=== PATIENT | male | born 1975 | race Hispanic/Latino ===

== ENCOUNTER 2017-04-13 11:44 | Emergency (ER) | payer BC, OTHER ==
[~2017-04-13] VITALS: Ht 165.1 cm; Wt 78.9 kg
[~2017-04-13 11:44] MED LIST: HYDRALAZINE HCL25 MG PO; LOPRESSOR25 MG PO; NEORAL100 MG PO; PREDNISONE10 MG PO; RENVELA0.8 GM PO; Z.0.PREDNISONE20 MG
[2017-04-13] MEDS ORDERED: ACETAMINOPHEN/CODEINE ELIX 120-12 MG/5 ML UDC PO ONE (12:00)
[2017-04-13] MEDS ORDERED: DEXAMETHASONE SOD PHOS 10 MG/1 ML VIAL INJ ONE (12:00)
[2017-04-13] MEDS ORDERED: IBUPROFEN 600 MG TAB PO STA (12:11)
[2017-04-13 12:34] LABS: BASOPHILS % 0.5 % (0.0-1.0); EOSINOPHILS # (AUTO) 0.2 (0.0-0.4); EOSINOPHILS % 4.1 % (0.0-6.0); HEMATOCRIT 38.3 % (38.2-49.6); HEMOGLOBIN 12.9 g/dL (14.0-18.0); LYMPHOCYTES # (AUTO) 0.7 (1.0-3.2); LYMPHOCYTES % 16.7 % (18.0-39.1); MEAN CORPUSCULAR HEMOGLOBIN 31.5 pg (28-32); MEAN CORPUSCULAR HGB CONC 33.7 g/dL (31-35); MEAN CORPUSCULAR VOLUME 93.4 fL (81-99); MONOCYTES # (AUTO) 0.6 (0.2-0.8); MONOCYTES % 15.4 % (4.4-11.3); NEUTROPHILS # (AUTO) 2.5 (2.1-6.9); PLATELET COUNT 108 x10e3/uL (140-360); RED CELL DISTRIBUTION WIDTH 14.8 % (11.7-14.4)
[2017-04-13 12:50] LABS: STREPTOCOCCUS GRP A ANTIGEN NEGATIVE (NEGATIVE)
[2017-04-13 12:53] LABS: ALBUMIN 3.7 g/dL (3.5-5.0); ALBUMIN/GLOBULIN RATIO 0.9 (0.8-2.0); ANION GAP 13.4 mmol/L (8-16); CALCIUM 8.7 mg/dL (8.4-10.2); CREATININE, SERUM 5.87 mg/dL (0.72-1.25); INFLUENZAE A&B ANTIGEN (RAPID) POSITIVE FLU A (NEGATIVE); POTASSIUM 3.4 mmol/L (3.5-5.1)
--- NOTE | 2017-04-13 13:22 | Diagnostic Imaging Report ---
EXAMINATION: Chest, CHEST 2 VIEWS INDICATION: Cough. COMPARISON: Chest 2 views 02/11/2017 FINDINGS: LINES: None. Heart: Normal cardiac silhouette. Vascular: The pulmonary vasculature is within normal limits. Mediastinum: No mediastinal, hilar, or axillary mass or lymphadenopathy. Lungs: No parenchymal mass. No focal consolidation. Pleura: No pleural effusion. No pneumothorax. Bones: No acute osseous abnormality. Soft tissues: Normal. Impression: No acute radiographic abnormality. Signed by: Dr. Perfecto Bocanegra M.D. on 04/13/2017 1:18 PM
[2017-04-13] MEDS ORDERED: PROAIR HFA INH8.5 GM INH (13:33)
[2017-04-13] MEDS ORDERED: TAMIFLU75 MG PO (13:33)
[2017-04-13] MEDS ORDERED: AZITHROMYCIN250 MG PO (13:33)
[2017-04-13 13:49] VITALS: BP 136/96
== END 2017-04-13 14:11 | disposition home or self-care (01) ==
LOC: ER 11:44
DX: R50.9 Fever, unspecified (principal); R05 Cough; J11.1 Influenza due to unidentified influenza virus with other respiratory manifestations
CPT/HCPCS: 36415; 71020; 80053; 83518; 85025; 87070; 87400; 99284; J1100; 71046

== ENCOUNTER 2017-06-03 03:19 | Inpatient (IN) | payer BC, OTHER ==
[~2017-06-03] VITALS: Ht 170.2 cm; Wt 90.0 kg
[~2017-06-03 03:19] MED LIST changes: +AZITHROMYCIN250 MG PO; +PROAIR HFA INH8.5 GM INH; +TAMIFLU75 MG PO
--- OUTSIDE RECORDS SUMMARY | 2017-06-03 03:21 | XMS REPORT ---
Author Author [facility] Address Unknown Phone Unavailable Care Team Providers Care Hedge Fund Principal Name Role Phone LUIS CARLOS GENAO Unavailable Unavailable YANY DE LA VEGA Unavailable Unavailable CAITLYN MCCALLUM Unavailable Unavailable KEKE GREEN Unavailable Unavailable Problems This patient has no known problems. Allergies, Adverse Reactions, Alerts This patient has no known allergies or adverse reactions. Medications This patient has no known medications. Results Test Description Test Time Test Comments Text Results Atomic Results Result Comments FLOW PRA CLASS I AND II 2016-12-31 12:08:00 DATE OF SERUM (BEAKER) (test dxti=4952) 113768 SERUM # (BEAKER) (test pjzx=7478) 890507 FLOW PRA CLASS I AND II (test ykhl=9725) See Scanned Report FLOW PRA CLASS I AND [id number] 13:10:00* Test Item Value Reference Range Comments DATE OF SERUM (BEAKER) (test pdog=1507) 668347 SERUM # (BEAKER) (test hqpb=4075) 318743 FLOW PRA CLASS I AND II (test pluv=0029) See Scanned Report HEPATITIS B SURFACE [id number] 14:12:00* Test Item Value Reference Range Comments HEPATITIS B SURFACE ANTIBODY (BEAKER) (test rbil=018) 139.4 mIU/mL <8.0 FLOW PRA CLASS I AND [id number] 06:49:00* Test Item Value Reference Range Comments DATE OF SERUM (BEAKER) (test gzlj=6131) 018587 SERUM # (BEAKER) (test uaro=3128) 915514 FLOW PRA CLASS I AND II (test xdxj=3857) See Scanned Report CHEST [address] [address] Patient Name: JANINE WILLINGHAM MR #: [id number] : 1975 Age/Sex: 41/M Req #: [id number] Adm Physician: Ordered by: MICHI BOONE PULP DRIER FIRER Report #: [id number] Location: ER Room/Bed: Procedure: [id number] DX/CHEST 2 VIEWS Exam Date: 04/13/17 Exam Time: 1235 REPORT STATUS: Signed EXAMINATION: Chest, CHEST 2 VIEWS INDICATION: Cough. COMPARISON: Chest 2 views 02/11/2017 FINDINGS : LINES: None. Heart: Normal cardiac silhouette. Vascular: The pulmonary vasculature is within normal limits. Mediastinum: No mediastinal, hilar, or axillary mass or lymphadenopathy. Lungs: No parenchymal mass. No focal consolidation. Pleura: No pleural effusion. No pneumothorax. Bones: No acute osseous abnormality. Soft tissues: Normal. Impression: No acute radiographic abnormality. Signed by : Dr. Carly Nice M.D. on 04/13/2017 1:18 PM Dictated By: CARLY NICE MD 17 Transcribed By: JERSON on 04/13/171317 COPY TO: MICHI BOONE PULP DRIER FIRER CHEST 2 VIEWS [place] [address] Patient Name: JANINE WILLINGHAM MR #: [id number] : 1975 Age/Sex: 41/M Req #: [id number] Adm Physician: Ordered by: YANY DE LA VEGA MD Report #: [id number] Location: RAD Room/Bed: Procedure: [id number] DX/CHEST 2 VIEWS Exam Date: 02/11/17 Exam Time: 1045 REPORT STATUS: Signed PROCEDURE: CHEST 2 VIEWS TECHNIQUE: PA lateral chest INDICATION: Followup pneumonia COMPARISON: None. FINDINGS: Near- complete resolution of right upper lobe airspace opacity relative to December 2016. No cavitation. Lungs are otherwise clear. No pleural effusions. Normal heart size. Intact skeleton. CONCLUSION: Interval improvement of airspace opacity at the peripheral right upper lobe consistent with resolving pneumonia. There is incomplete resolution and therefore additional followup chest radiograph is recommended in 6 weeks. Dictated by: Amanda Galaviz M.D. on 02/11/2017 at 11:10 Electronically approved by: Amanda Galaviz M.D. on 02/11/2017 at 11:10 Dictated By: AMANDA GALAVIZ MD 1110 Transcribed By: KORIN on 02/11/17 1110 COPY TO: YANY DE LA VEGA MD CT CHEST [address] [place] [address] Patient Name: JANINE WILLINGHAM MR #: [id number] : 1975 Age/Sex: 41/M Req #: [id number] Adm Physician: CAITLYN MCCALLUM MD Ordered by: PERNELL SNEED MD Report #: [id number] Location: MED/SURG2 Room/Bed: [facility] _ Procedure: [id number] CT/CT CHEST W Exam Date: 01/14/17 Exam Time: 2301 REPORT STATUS: Signed EXAM: CT CHEST W DATE : 01/14/2017 6:40 PM Time stamp on exam: 2305 hours INDICATION: Pleurisy, end-stage renal disease, pneumonia COMPARISON: PA and lateral view of the chest October 23, 2016 TECHNIQUE: Multidetector CT scanning of the chest was performed. Coronal and sagittal multiplanar reformations were obtained. Routine protocol performed. IV Contrast: 100 cc Isovue-370 CTDIvol has been reviewed. It is below the limits set by the Radiation Protocol Committee (RPC) . FINDINGS: LUNGS AND AIRWAYS: There is a consolidation in the posterior aspect of the right upper lung along the fissure. Within the consolidation is a central bubbly lucency measuring approximately 1.5 cm ( sagittal image 31). Nonspecific 6 mm nodule in the right upper lung anteriorly (series 3, image 48). Linear atelectasis/scarring in the right middle lobe, lingula and bilateral lung bases. Bibasilar bronchial thickening. PLEURA: Trace bilateral pleural effusions. HEART, MEDIASTINUM, VESSELS: Several mediastinal, subcarinal and right hilar subcentimeter lymph nodes consistent with reactive lymph nodes. The heart and great vessels are unremarkable. UPPER ABDOMEN: No acute finding. MUSCULOSKELETAL: No acute findings. IMPRESSION: Findings are consistent with pneumonia in the right upper lung. If symptoms do not improve, follow-up CT is recommended for possible early necrosis/abscess formation within the consolidation. Signed by: Dr. Reshma Minor M.D. on 01/15/2017 12:16 AM Dictated By: RESHMA MINOR MD Transcribed By: JERSON on 01/15/1715 COPY TO: PERNELL SNEED MD CHEST 2 VIEWS [place] [address] Patient Name: JANINE WILLINGHAM MR #: [id number] : 1975 Age/Sex: 41/M Req #: [id number] Adm Physician: Ordered by: JACINDA ELLIOTT MD Report #: [id number] Location: ER Room/Bed: Procedure: [id number] DX/CHEST 2 VIEWS Exam Date: 01/13/17 Exam Time: 2144 REPORT STATUS: Signed EXAMINATION: CHEST 2 VIEWS INDICATION: Upper back pain. Fever, vomiting for 2 days COMPARISON: Chest x-ray on 10/23/2016 and 03/13/2013 FINDINGS: TUBES and LINES: None. LUNGS: Lungs are not well inflated. Right lower lobe and right middle lobe patchy airspace opacity with areas of nodularity are compatible with evolving infection. PLEURA: Focal right pleural thickening at the mid lung is suspicious for loculated effusion versus pleural proliferative disease HEART AND MEDIASTINUM: The cardiomediastinal silhouette is unremarkable. BONES AND SOFT TISSUES: No acute osseous lesion. Soft tissues are unremarkable. UPPER ABDOMEN: No free air under the diaphragm. IMPRESSION: Findings are suspicious for infectious process in the right lower lobe with loculated effusion. However, further evaluation with CT of the chest with IV contrast is recommended to exclude the presence of underlying solid mass. Signed by: Dr. Apolinar Camargo M.D. on 01/13/2017 10:20 PM Dictated By: APOLINAR MCLEOD MD 19 Transcribed By: JERSON on 01/13/172219 COPY TO: JACINDA ELLIOTT MD
[2017-06-03 03:46] LABS: BASOPHILS % 0.6 % (0.0-1.0); BILIRUBIN,URINE NEGATIVE (NEGATIVE); EOSINOPHILS # (AUTO) 0.3 (0.0-0.4); EOSINOPHILS % 3.7 % (0.0-6.0); HEMATOCRIT 30.1 % (38.2-49.6); HEMOGLOBIN 10.2 g/dL (14.0-18.0); KETONES,URINE NEGATIVE (NEGATIVE); LEUKOCYTE ESTERASE ,URINE NEGATIVE (NEGATIVE); LYMPHOCYTES # (AUTO) 0.8 (1.0-3.2); LYMPHOCYTES % 11.8 % (18.0-39.1); MEAN CORPUSCULAR HEMOGLOBIN 30.2 pg (28-32); MEAN CORPUSCULAR HGB CONC 33.9 g/dL (31-35); MEAN CORPUSCULAR VOLUME 89.1 fL (81-99); MONOCYTES # (AUTO) 0.8 (0.2-0.8); MONOCYTES % 10.6 % (4.4-11.3); NEUTROPHILS # (AUTO) 5.2 (2.1-6.9); NEUTROPHILS % 72.9 % (38.7-80.0); NITRITE,URINE NEGATIVE (NEGATIVE); PLATELET COUNT 91 x10e3/uL (140-360); PROTEIN,URINE DIPSTICK 3+ (NEGATIVE); RED BLOOD COUNT 3.38 x10e6/uL (4.3-5.7); RED CELL DISTRIBUTION WIDTH 13.3 % (11.7-14.4); URINE UROBILINOGEN 0.2 mg/dL (0.2 - 1)
[2017-06-03 03:49] LABS: CLARITY,URINE CLEAR (CLEAR); COLOR,URINE YELLOW (YELLOW)
[2017-06-03 03:53] LABS: INR 1.23; PROTHROMBIN TIME 14.6 seconds (11.9-14.5)
[2017-06-03 03:54] LABS: PARTIAL THROMBOPLASTIN TIME 36.4 seconds (23.8-35.5)
[2017-06-03 03:58] LABS: EPITHELIAL CELLS,URINE FEW /LPF; RBC,URINE 21-50 /HPF (0-5); WBC,URINE (MAN) 0-5 /HPF (0-5)
[2017-06-03 04:04] LABS: ALBUMIN 3.1 g/dL (3.5-5.0); ALBUMIN/GLOBULIN RATIO 0.8 (0.8-2.0); ANION GAP 16.8 mmol/L (8-16); CALCIUM 7.8 mg/dL (8.4-10.2); CREATININE, SERUM 9.51 mg/dL (0.72-1.25); MAGNESIUM 1.9 MG/DL (1.3-2.1); POTASSIUM 3.8 mmol/L (3.5-5.1)
[2017-06-03 04:10] LABS: CREATINE KINASE MB 0.3 ng/mL (0-5.0)
[2017-06-03 04:11] LABS: B-TYPE NATRIURETIC PEPTIDE2 1786.5 pg/mL (0-100)
--- NOTE | 2017-06-03 04:16 | Diagnostic Imaging Report ---
Exam: Head CT without contrast History: Headache, vomiting Comparison studies: 10/29/2013 Technique: Axial images were obtained from the skull base to the vertex. Coronal and sagittal images reconstructed from the axial data. Intravenous contrast: None Findings: Scalp: No abnormalities. Bones: No fractures, blastic or lytic lesions. Brain sulci: Appropriate for age. Ventricles: Normal in size and configuration. No hydrocephalus. Extra-axial spaces: No masses, no fluid collection. Parenchyma: No abnormal densities. No masses, hemorrhage, acute or chronic vascular insults. Sellar/suprasellar region: No abnormalities. Craniocervical junction: Patent foramen magnum. No Chiari one malformation. Incidental findings: None. IMPRESSION: 1. No acute intracranial abnormalities. Signed by: Dr. Apolinar Camargo M.D. on 06/03/2017 4:13 AM
--- NOTE | 2017-06-03 04:22 | Diagnostic Imaging Report ---
EXAMINATION: CHEST 2 VIEWS INDICATION: Cough, fever, history chest pain. COMPARISON: 04/13/2017 FINDINGS: TUBES and LINES: None. LUNGS: Lungs are not well inflated. Interlobular septi thickening is noted by the presence of Shaun B lines Multifocal airspace disease predominantly involving the lung bases and right middle lobe suspicious for multifocal infection PLEURA: Trace of right pleural effusion present HEART AND MEDIASTINUM: Cardiac size is mildly enlarged. BONES AND SOFT TISSUES: No acute osseous lesion. Soft tissues are unremarkable. UPPER ABDOMEN: No free air under the diaphragm. IMPRESSION: 1. Findings are compatible with multifocal pneumonia. Follow-up until resolution is recommended 2. Fluid overload and trace of right pleural effusion is also present. Signed by: Dr. Apolinar Camargo M.D. on 06/03/2017 4:18 AM
[2017-06-03] MEDS ORDERED: VANCOMYCIN 1GM/NS 250 ML 250 ML IV STA (04:27)
[2017-06-03] MEDS ORDERED: CEFEPIME HCL 1 GM VIAL ONE (04:41)
[2017-06-03] MEDS ORDERED: CLINDAMYCIN PHOS 900MG/ D5W 50 50 ML IV ONE (04:41)
[2017-06-03] MEDS ORDERED: ONDANSETRON HCL INJ 2 MG/ML VIAL IV STA (04:42)
[2017-06-03] MEDS: CLINDAMYCIN PHOS 900MG/ D5W 50 50 ML IV SCH ×2 (04:51→05:42)
[2017-06-03] MEDS ORDERED: PROCARDIA XL30 MG PO (04:51)
[2017-06-03] MEDS: CEFEPIME HCL 1 GM VIAL IV SCH ×2 (04:51→16:12)
[2017-06-03] MEDS ORDERED: ALBUTEROL SULF 0.083% NEB SOLN 3 ML NEB NEB PRN (05:15)
[2017-06-03] MEDS ORDERED: IPRATROPIUM BROMIDE 0.02% 2.5 ML NEB NEB PRN (05:15)
[2017-06-03] MEDS ORDERED: SODIUM CHLORIDE FLUSH 10 ML SYR INJ PRN (05:15)
[2017-06-03 06:13] VITALS: BP 156/89
[2017-06-03 06:30] VITALS: BP 156/89
[2017-06-03] MEDS ORDERED: MORPHINE SULFATE 2 MG/ML SYR IV PRN (06:45)
[2017-06-03] MEDS ORDERED: ACETAMINOPHEN 325 MG TAB PO ONE (06:45)
[2017-06-03 07:55] VITALS: BP 150/97
[2017-06-03 10:51] VITALS: BP 150/97
[2017-06-03 11:32] LABS: CREATINE KINASE MB 0.3 ng/mL (0-5.0)
--- NOTE | 2017-06-03 13:10 | History and Physical ---
Mr. King is a pleasant man whose 42th birthday is today. CHIEF COMPLAINT: He presented to the emergency room overnight with fever, cough, nausea and vomiting over the past several days. HISTORY OF PRESENT ILLNESS: The patient reports he has dialysis on Saturday, and Saturday. He has attended these dialysis sessions without any problem but noted some nausea and vomiting and then cough. PAST MEDICAL HISTORY: Significant for a similar episode in December 2016 when he was hospitalized at [facility] and found to have pneumonia. He has chronic end-stage renal failure on hemodialysis. He had severe hypertension before beginning dialysis. He has had remote inguinal hernia repair. HOME MEDICATIONS: Please see the chart. PERSONAL AND SOCIAL HISTORY: He does not smoke or drink, and he continues to work. PHYSICAL EXAMINATION: GENERAL: At this time shows a pleasant, alert man who is comfortable. VITAL SIGNS: Blood pressure is 150/90. HEENT: Unremarkable. NECK: No jugular venous distention, no bruits. THORAX: Heart sounds S1 and S2 are equal. No murmurs. Lungs are relatively clear. ABDOMEN: Protuberant. Normal bowel sounds. EXTREMITIES: With no cyanosis, clubbing or edema. There is a functioning AV graft in the left arm. PERTINENT LABORATORY STUDIES: Show a BUN of 30 and creatinine 9.5, hemoglobin 10.2. BNP is 1786. ASSESSMENT: 1. Pneumonia suggested by chest x-ray. 2. End-stage renal failure. 3. Congestive heart failure by BNP elevated with no previously known cardiac disease. PLAN: The patient is on antibiotics. Will ask for continued dialysis support and will check echocardiogram and consider further cardiac evaluation. Job#: [id number] EV cc:MD PERNELL LONG MD
[2017-06-03] MEDS: ONDANSETRON HCL INJ 2 MG/ML VIAL IV PRN ×2 (13:15→16:35)
--- NOTE | 2017-06-03 13:37 | Consultation ---
DATE OF CONSULTATION: June 03, 2017 HISTORY OF PRESENT ILLNESS: Mr. Francis is known to me. He is a pleasant 42-year-old gentleman with underlying history of coronary artery disease, congestive heart failure, anemia, chronic kidney disease, end-stage renal disease, history of hypertension, secondary hyperparathyroidism, admitted with shortness of breath and had a significantly elevated BNP level. He is a Saturday, , Saturday patient, with chest x-ray showing borderline cardiomegaly with bilateral infiltrates, no clear-cut lobar pneumonia noted. Laboratory test shows white count 7, hemoglobin 10.2, potassium 3.8, creatinine 9.5, BNP 176. ALLERGIES: NO APPARENT DRUG ALLERGIES. CURRENT MEDICATIONS: Please see MAR for detail. Patient is on clindamycin. He is on acetaminophen. He is on albuterol and Atrovent nebulizers. He is on ondansetron p.r.n., Renvela with meals, and nifedipine 30 mg XL p.o. daily. SOCIAL HISTORY: Does not smoke or drink. FAMILY HISTORY: Significant for hypertension. PHYSICAL EXAMINATION: GENERAL: Awake, alert, lying supine, in no apparent distress. VITALS: Blood pressure of 150/97, pulse rate 80, afebrile, respiratory rate 18. HEAD AND NECK: Cornea clear. Oral mucosa dry. LUNGS: Bibasilar rales with rhonchi and expiratory bilaterally. HEART: S1, S2 audible. ABDOMEN: Otherwise soft, nontender. EXTREMITIES: Lower extremity examination shows no edema. IMPRESSION AND PLAN 1. Fluid overload. 2. Underlying end-stage renal disease. 3. Hypertension. 4. Multiple comorbidities. Plan on urgent hemodialysis. Will place him on a fluid restricted renal diet. He is a Saturday, , and Saturday dialysis patient. We will do 2 hours today and a full run tomorrow. He does have a history of nausea and vomiting prior to admission, so there is potential possibility of aspiration, so he is on clindamycin. I am going to change that, which usually covers oral anaerobes with gastric anaerobes, would suggest metronidazole, but given that he has got no penicillin allergies, I am going to stop clindamycin and place him on Peptazol and piperacillin/tazobactam, which should cover most of the and anaerobes. He does have some wheezing, which we will address with nebulizer treatment. Job#: [id number] PAT
[2017-06-03] MEDS: PIPERACILLIN/TAZO 2.25 GM 50 ML IV SCH ×2 (14:18→21:17)
[2017-06-03 16:11] VITALS: BP 163/101
[2017-06-03] MEDS: NIFEDIPINE CR 30 MG TAB PO SCH (16:11)
[2017-06-03] MEDS: ACETAMINOPHEN 325 MG TAB PO PRN ×2 (16:12→21:17)
[2017-06-03] MEDS: SEVELAMER CARBONATE 800 MG TAB PO SCH (17:00)
[2017-06-03] MEDS ORDERED: AZITHROMYCIN 250 MG TAB PO ONE (18:30)
[2017-06-03 19:38] LABS: CREATINE KINASE MB 0.3 ng/mL (0-5.0)
[2017-06-03 20:06] VITALS: BP 166/102
--- NOTE | 2017-06-03 20:51 | Consultation ---
DATE OF CONSULTATION: June 03, 2017 PULMONARY CONSULTATION Patient of Dr. Phani Hensley, Dr. Maki Lopez. A charming but unfortunate 41-year-old gentleman with a history of end-stage renal disease, admitted with cough productive of yellow sputum for approximately 4 days, nausea, but no vomiting, fever. Had dialysis approximately 3 days ago, and is currently undergoing dialysis. He has a history of hypertension, end-stage renal disease. No history of diabetes. No history of autoimmune disease. HOME MEDICATIONS: Have included nifedipine and Renvela. He has had AV fistula surgery. 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 FAMILY HISTORY: Positive for colon cancer. PHYSICAL EXAMINATION GENERAL: A well-developed white male in no acute distress undergoing dialysis. VITALS: T-max 100.6, pulse 100, blood pressure 165/101. HEENT: Head is normocephalic and atraumatic. NECK: Trachea midline. LUNGS: Few rales and rhonchi. HEART: Regular rhythm. ABDOMEN: Nontender. EXTREMITIES: Not edematous. IMPRESSION 1. End-stage renal disease. 2. Community-acquired pneumonia. Concern for possibility of aspiration. Anti-staph covered considered, as well as atypical cover. He is currently on Zosyn. Will add doxycycline to the patient's regimen. He received 1 dose of vancomycin, and should cover staph. Will cover for atypicals with Zithromax orally. Thank you for this kind referral. Job#: [id number] RJ
[2017-06-03] MEDS: MORPHINE SULFATE 2 MG/ML SYR IV PRN (22:22)
[2017-06-04] VITALS (7 sets, daily range): BP systolic 128–147; BP diastolic 85–95
[2017-06-04] MEDS: CEFEPIME HCL 1 GM VIAL IV SCH (04:17)
[2017-06-04] MEDS: PIPERACILLIN/TAZO 2.25 GM 50 ML IV SCH ×3 (05:49→22:05)
[2017-06-04] MEDS: MORPHINE SULFATE 2 MG/ML SYR IV PRN ×2 (06:08→22:49)
--- NOTE | 2017-06-04 06:42 | Diagnostic Imaging Report ---
CHEST SINGLE (PORTABLE), 06/04/2017 5:00 AM Technique: CHEST SINGLE (PORTABLE) Comparison: 06/03/2017 Clinical history: Pneumonia Findings: See Impression Impression: 1. Stable mildly enlarged cardiac silhouette. 2. Increased bilateral diffuse opacities which could be due to edema and/or infection. 3. Tiny bilateral effusions. Signed by: Dr Promise Morin MD on 06/04/2017 6:39 AM
[2017-06-04 06:49] LABS: BASOPHILS % 0.4 % (0.0-1.0); EOSINOPHILS # (AUTO) 0.4 (0.0-0.4); HEMOGLOBIN 8.9 g/dL (14.0-18.0); LYMPHOCYTES # (AUTO) 0.8 (1.0-3.2); MEAN CORPUSCULAR HEMOGLOBIN 30.1 pg (28-32); MEAN CORPUSCULAR VOLUME 91.2 fL (81-99); MONOCYTES # (AUTO) 0.9 (0.2-0.8); MONOCYTES % 12.5 % (4.4-11.3); NEUTROPHILS # (AUTO) 5.1 (2.1-6.9); NEUTROPHILS % 70.8 % (38.7-80.0); PLATELET COUNT 98 x10e3/uL (140-360); RED BLOOD COUNT 2.96 x10e6/uL (4.3-5.7); RED CELL DISTRIBUTION WIDTH 13.3 % (11.7-14.4)
[2017-06-04 07:10] LABS: ALBUMIN 2.6 g/dL (3.5-5.0); ALBUMIN/GLOBULIN RATIO 0.7 (0.8-2.0); ANION GAP 14.2 mmol/L (8-16); CALCIUM 7.3 mg/dL (8.4-10.2); CREATININE, SERUM 8.65 mg/dL (0.72-1.25); POTASSIUM 4.2 mmol/L (3.5-5.1)
[2017-06-04] MEDS: SEVELAMER CARBONATE 800 MG TAB PO SCH ×3 (09:09→17:15)
[2017-06-04] MEDS: AZITHROMYCIN 250 MG TAB PO SCH (09:09)
[2017-06-04] MEDS ORDERED: SODIUM CHLORIDE 0.9% 1000ML 2,000 ML IV PRN (18:00)
[2017-06-04] MEDS ORDERED: ALBUMIN HUMAN 12.5GM / 50ML IV PRN (18:00)
[2017-06-04] MEDS ORDERED: SODIUM CHLORIDE 0.9% 1000ML 2,000 ML ONE (18:00)
[2017-06-04] MEDS ORDERED: SODIUM CHLORIDE 0.9% 250ML 500 ML IV PRN (18:00)
[2017-06-04] MEDS ORDERED: MANNITOL 25% 12.5GM/50 ML VIAL IV PRN (18:00)
[2017-06-05] VITALS: BP 144/91
[2017-06-05 04:00] VITALS: BP 138/88
[2017-06-05] MEDS: PIPERACILLIN/TAZO 2.25 GM 50 ML IV SCH (06:01)
[2017-06-05 07:14] VITALS: BP 148/94
[2017-06-05 07:48] VITALS: BP 148/94
[2017-06-05] MEDS: SEVELAMER CARBONATE 800 MG TAB PO SCH ×2 (08:49→12:30)
[2017-06-05] MEDS: AZITHROMYCIN 250 MG TAB PO SCH (09:11)
[2017-06-05] MEDS: NIFEDIPINE CR 30 MG TAB PO SCH (09:12)
[2017-06-05 12:46] VITALS: BP 151/98
[2017-06-05] MEDS ORDERED: AZITHROMYCIN250 MG PO (13:23)
--- NOTE | 2017-06-05 13:59 | Discharge Summary ---
HISTORY OF PRESENT ILLNESS: Mr. King is a pleasant 42-year-old man who had his birthday during this hospitalization, who presented to the emergency room on the with a complaint of cough and fever at home. HOSPITAL COURSE: Chest x-ray suggested multifocal pneumonia. It appeared the patient had had some nausea and vomiting at home and may have aspirated gastric contents. He was given broad-spectrum antibiotics, and he received dialysis on the and . Patient made rapid improvement on broad-spectrum antibiotic coverage and today is afebrile and feeling much better. He is discharged to home to continue his previous medications of nifedipine and sevelamer. He will take azithromycin 250 mg daily for the next 5 days and will follow up with Dr. Foster on a regular basis and with Dr. Lopez for dialysis. DISCHARGE DIAGNOSES: 1. Pneumonia. 2. Possible aspiration pneumonia. 3. End-stage renal failure. 4. Hypertension. CAITLYN MCCALLUM MD Job#: [id number] EV cc:PONCHO LOPEZ MD cc:PERNELL SNEED MD
== END 2017-06-05 14:57 | disposition home or self-care (01) | DRG 177 ==
LOC: ER 03:19 → MED/SURG3 05:25
PROVIDERS: ADMIT Internal Medicine Cardiovascular Disease; ATTEND Internal Medicine Cardiovascular Disease
PROC: 5A1D70Z Performance of Urinary Filtration, Intermittent, Less than 6 Hours Per Day (ICD-10-PCS; principal; 2017-06-03)
DX: J69.0 Pneumonitis due to inhalation of food and vomit (principal); N18.6 End stage renal disease; I13.2 Hypertensive heart and chronic kidney disease with heart failure and with stage 5 chronic kidney disease, or end stage renal disease; N25.81 Secondary hyperparathyroidism of renal origin; Z99.2 Dependence on renal dialysis; I50.9 Heart failure, unspecified; I25.10 Atherosclerotic heart disease of native coronary artery without angina pectoris; J15.9 Unspecified bacterial pneumonia
CPT/HCPCS: 36415; 70450; 71045; 71046; 80053; 81001; 82550; 82553; 83605; 83735; 83880; 84484; 85025; 85610; 85730; 87040; 87070; 87071; 87086; 87186; 87205; 87340; 87400; 90962; 93005; 93306; 96365; 96374; 99284; J0692; J2270; J2405; J2543; J3370; J7030

== ENCOUNTER 2017-06-13 06:07 | Observation (INO) | payer BC, OTHER ==
[~2017-06-13] VITALS: Ht 170.2 cm; Wt 78.5 kg
[~2017-06-13 06:07] MED LIST changes: +PROCARDIA XL30 MG PO
--- OUTSIDE RECORDS SUMMARY | 2017-06-13 06:10 | XMS REPORT | Continuity of Care Document ---
Author Author [facility] Organization [facility] Address [address] [place] [address] Phone Unavailable Care Team Providers Care Bone Char Kiln Tender Name Role Phone YANY DE LA VEGA MD PCP Insurance Providers Guarantor Janine King Address [address] [place] [address] Email [email or web address] Payer [facility] Ppo Policy Number [id number] Subscriber's Name Janine King Relationship 18 Self / Same As Patient Group Name [place] Effective Date 17 Payer [employer] Pos Policy Number [id number] Subscriber's Name Sima Salazar Relationship 01 Group Number [id number] Group Name [employer] Effective Date 10 Advance Directives Directive Response Recorded Date/Time Does the patient have an advance directive? No 06/03/17 8:30am If yes, is advance directive on file with [facility]? No 06/03/17 8:30am If not on file with [facility] will patient provide a copy? Yes 06/03/17 8:30am Do you have a Directive to Physician? No 06/03/17 4:10am Do you have a Medical Power of Field Agronomist? No 06/03/17 4:10am Do you have an out of hospital Do Not Resuscitate Order? No 06/03/17 4:10am Do you have any special needs we should be aware of? No 06/03/17 4:10am Do you have a support person here with you today? Yes 06/03/17 4:10am Did patient receive Notice of Privacy Practices? Yes 06/03/17 4:10am Did patient receive patient rights and responsibilities? Yes 06/03/17 4:10am Problems Medical Problem Onset Date Status Bronchitis Unknown Acute ESRD (end stage renal disease) on dialysis Unknown Fever Unknown Acute Influenza Unknown Acute Pneumonia Unknown Volume overload Unknown Vomiting Unknown Vomiting Unknown Medications Current Home Medications Medication Dose Units Route Directions Days Qty Instructions Start Date Azithromycin (Z-Bill) 250 Mg Tablet 250 Mg Oral Daily 1 Udpkt Z-Pack Nifedipine (Procardia Xl) 30 Mg Tab.er.24 30 Mg Oral Daily 30 Tab Sevelamer Carbonate (Renvela) 0.8 Gm Powd.pack 3,200 Mg Oral Three Times Daily With Meals Past Home Medications Medication Directions Ordered Status Cyclosporine, Modified (Neoral) 100 Mg Capsule, 125 Mg Oral Twice A Day Discontinued Hydralazine Hcl 25 Mg Tab, 50 Mg Oral Twice A Day Discontinued Metoprolol Tartrate (Lopressor) 25 Mg Tab, 100 Mg Oral Twice A Day Discontinued Prednisone 10 Mg Tab, 10 Mg Oral Daily Discontinued Prednisone 20 Mg Tablet, Three Tabs Daily Discontinued Sevelamer Carbonate (Renvela) 0.8 Gm Powd.pack, 800 Mg Oral Four Times Daily Discontinued Social History Social History Problem Response Recorded Date/Time Onset Date Status Hx Psychiatric Problems No 2017 8:30am Not Applicable Not Applicable Hx Eating Disorder No 2017 8:30am Not Applicable Not Applicable Hx Substance Use Disorder No 2017 8:30am Not Applicable Not Applicable Hx Depression No 2017 8:30am Not Applicable Not Applicable Hx Alcohol Use No 2017 8:30am Not Applicable Not Applicable Hx Substance Use Treatment No 2017 8:30am Not Applicable Not Applicable Hx Physical Abuse No 2017 8:30am Not Applicable Not Applicable Smoking Status Start Date Stop Date Never Smoker Hospital Discharge Instructions No hospital discharge instruction information available. Plan of Care Discharge Date 06/05/17 2:57pm Disposition HOME, SELF-CARE Instructions/Education Provided Pneumonia - Bacterial Prescriptions See Medication Section Additional Instructions/Education ACTIVITY TOLERATED RENAL DIET TOLERATED FOLLOW UP WITH YOUR PRIMARY CARE PHYSICIAN IN 1-2 WEEKS. Functional Status Query Response Date Recorded Assistive Devices None 2017 10:51am Ambulation Ability Independent 2017 10:51am Toileting Ability Independent June 05, 2017 12:47pm Allergies, Adverse Reactions, Alerts No known allergies. Immunizations No immunization information available. Vital Signs Acute Vital Signs Vital Response Date/Time Temperature (Fahrenheit) 96.5 degrees F (97.6 - 99.5) 06/05/2017 12:46pm Pulse Pulse Rate (adult) 85 bpm (60 - 90) 06/05/2017 12:46pm Respiratory Rate 18 bpm (12 - 24) 06/05/2017 12:46pm Blood Pressure 151/98 mm Hg 06/05/2017 12:46pm Height 5 ft 7 in 2017 6:14am Weight 198.38 lb 2017 6:14am Body Mass Index 31.1 kg/m^2 2017 8:30am Results Laboratory Results Test Name Result Units Flags Reference Collection Date/Time Result Date/ Time Comments Bedside Glucose 98 mg/dL 70-120 01/18/2017 7:36am 01/18/2017 8:03am Meter ID: [id number] Lipase 26 U/L 8-78 01/13/2017 9:40pm 01/13/2017 10:12pm Hepatitis A IgM Antibody Negative 01/14/2017 2:43pm 01/17/2017 11: 45am Hepatitis B Core IgM Antibody Negative 01/14/2017 2:43pm 2016 11:45am Hepatitis C Antibody <0.1 01/14/2017 2:43pm 01/17/2017 11:45am Reference Range: 0.0 - 0.9 s/co ratio Negative: < 0.8 Indeterminate: 0.8 - 0.9 Positive: > 0.9 The CDC recommends that a positive HCV antibody result be followed up with a HCV Nucleic Acid Amplification test (718232). Testing performed by: [facility] [address] Dir: Dylon Wyman MD Group A Streptococcus Screen NEGATIVE NEGATIVE 04/13/2017 12:12pm 12:50pm White Blood Count 7.26 x10e3/uL 4.8-10.8 06/04/2017 6:30am 06/04/2017 7 :48am Red Blood Count 2.96 x10e6/uL L 4.3-5.7 06/04/2017 6:3006/04/2017 7: 48am Hemoglobin 8.9 g/dL L 14.0-18.0 06/04/2017 6:3006/04/2017 7:48am Hematocrit 27.0 % L 38.2-49.6 06/04/2017 6:3006/04/2017 7:48am Mean Corpuscular Volume 91.2 fL 81-99 06/04/2017 6:3006/04/2017 7: 48am Mean Corpuscular Hemoglobin 30.1 pg 28-32 06/04/2017 6:3006/04/2017 7:48am Mean Corpuscular Hemoglobin Concent 33.0 g/dL 31-35 06/04/2017 6:3006/04/2017 7:48am Red Cell Distribution Width 13.3 % 11.7-14.4 06/04/2017 6:302017 7:48am Platelet Count 98 x10e3/uL L 140-360 06/04/2017 6:3006/04/2017 7: 48am Neutrophils (%) (Auto) 70.8 % 38.7-80.0 06/04/2017 6:3006/04/2017 7: 48am Lymphocytes (%) (Auto) 11.0 % L 18.0-39.1 06/04/2017 6:3006/04/2017 7 :48am Monocytes (%) (Auto) 12.5 % H 4.4-11.3 06/04/2017 6:3006/04/2017 7: 48am Eosinophils (%) (Auto) 5.0 % 0.0-6.0 06/04/2017 6:3006/04/2017 7: 48am Basophils (%) (Auto) 0.4 % 0.0-1.0 06/04/2017 6:3006/04/2017 7:48am IM GRANULOCYTES % 0.3 % 0.0-1.0 06/04/2017 6:3006/04/2017 7:48am Neutrophils # (Auto) 5.1 2.1-6.9 06/04/2017 6:30am 06/04/2017 7:48am Lymphocytes # (Auto) 0.8 L 1.0-3.2 06/04/2017 6:3006/04/2017 7: 48am Monocytes # (Auto) 0.9 H 0.2-0.8 06/04/2017 6:3006/04/2017 7:48am Eosinophils # (Auto) 0.4 0.0-0.4 06/04/2017 6:3006/04/2017 7:48am Basophils # (Auto) 0.0 0.0-0.1 06/04/2017 6:3006/04/2017 7:48am Absolute Immature Granulocyte (auto 0.02 x10e3/uL 0-0.1 06/04/2017 6: 3006/04/2017 7:48am Prothrombin Time 14.6 seconds H 11.9-14.5 2017 3:35am 2017 3 :59am Prothromb Time International Ratio 1.23 2017 3:35am 2017 3:59am Oral Anticoagulant Therapy INR Values: 1. Low Intensity Therapy 1.5 - 2.0 2. Moderate Intensity Therapy 2.0 - 3.0 3. High Intensity Therapy(1) 2.5 - 3.5 4. High Intensity Therapy(2) 3.0 - 4.0 5. Panic Value INR > 5.0 Activated Partial Thromboplast Time 36.4 seconds H 23.8-35.5 2017 3 :35am 2017 3:59am Urine Color YELLOW YELLOW 2017 3:35am 2017 3:49am Urine Clarity CLEAR CLEAR 2017 3:35am 2017 3:49am Urine Specific [place] 1.015 1.010-1.025 2017 3:35am 2017 3:49am Urine pH 9 H 5 - 7 2017 3:35am 2017 3:49am Urine Leukocyte Esterase NEGATIVE NEGATIVE 2017 3:35am 2017 3:49am Urine Nitrite NEGATIVE NEGATIVE 2017 3:35am 2017 3:49am Urine Protein 3+ H NEGATIVE 2017 3:35am 2017 3:49am Urine Glucose (UA) 1+ H NEGATIVE 2017 3:35am 2017 3:49am Urine Ketones NEGATIVE NEGATIVE 2017 3:35am 2017 3:49am Urine Urobilinogen 0.2 mg/dL 0.2 - 1 2017 3:35am 2017 3: 49am Urine Bilirubin NEGATIVE NEGATIVE 2017 3:35am 2017 3: 49am Urine Blood 2+ H NEGATIVE 2017 3:35am 2017 3:49am Urine WBC 0-5 /HPF 0-5 2017 3:35am 2017 3:58am Urine RBC 21-50 /HPF H 0-5 2017 3:35am 2017 3:58am Urine Bacteria NONE /HPF NONE 2017 3:35am 2017 3:58am Urine Epithelial Cells FEW /LPF NONE 2017 3:35am 2017 3: 58am Sodium Level 135 mmol/L L 136-145 06/04/2017 6:30am 06/04/2017 7:10am Potassium Level 4.2 mmol/L 3.5-5.1 06/04/2017 6:30am 06/04/2017 7:10am Chloride Level 97 mmol/L L 98-107 06/04/2017 6:30am 06/04/2017 7:10am Influenza Virus Types A,B Antigen NEGATIVE NEGATIVE 2017 3:35am 2017 4:04am Carbon Dioxide Level 28 mmol/L 22-29 06/04/2017 6:30am 06/04/2017 7: 10am Anion Gap 14.2 mmol/L 8-16 06/04/2017 6:30am 06/04/2017 7:10am Blood Urea Nitrogen 29 mg/dL H 7-26 06/04/2017 6:3006/04/2017 7:10am Creatinine 8.65 mg/dL H 0.72-1.25 06/04/2017 6:30am 06/04/2017 7:10am BUN/Creatinine Ratio 3 L 6-25 06/04/2017 6:30am 06/04/2017 7:10am Estimat Glomerular Filtration Rate 7 ML/MIN L 60- 06/04/2017 6:30 7:10am Ranges were taken from the National Kidney Disease Education Program and the National Kidney Foundation literature. Reference ranges: 60 or greater: Normal 16-59 (for 3 consecutive months): Chronic kidney disease 15 or less: Kidney failure Glucose Level 98 mg/dL 74-118 06/04/2017 6:30am 06/04/2017 7:10am Calcium Level 7.3 mg/dL L 8.4-10.2 06/04/2017 6:3006/04/2017 7:10am Lactic Acid Level 7.4 MG/DL 4.5-19.8 2017 3:35am 2017 4: 00am Magnesium Level 1.9 MG/DL 1.3-2.1 2017 3:35am 2017 4:05am Total Bilirubin 0.8 mg/dL 0.2-1.2 06/04/2017 6:3006/04/2017 7:10am Aspartate Amino Transf (AST/SGOT) 12 IU/L 5-34 06/04/2017 6:302017 7:10am Alanine Aminotransferase (ALT/SGPT) 9 IU/L 0-55 06/04/2017 6:30am 06/04 7:10am Total Protein 6.4 g/dL L 6.5-8.1 06/04/2017 6:30am 06/04/2017 7:10am Albumin 2.6 g/dL L 3.5-5.0 06/04/2017 6:30am 06/04/2017 7:10am Globulin 3.8 g/dL H 2.3-3.5 06/04/2017 6:30am 06/04/2017 7:10am Albumin/Globulin Ratio 0.7 L 0.8-2.0 06/04/2017 6:30am 06/04/2017 7: 10am Alkaline Phosphatase 74 IU/L 40-150 06/04/2017 6:30am 06/04/2017 7: 10am B-Type Natriuretic Peptide 1786.5 pg/mL H 0-100 2017 3:35am 2017 4:16am Creatine Kinase 54 IU/L 30-200 2017 6:45pm 2017 7:33pm Creatine Kinase MB 0.30 ng/mL 0-5.0 2017 6:45pm 2017 7: 40pm Troponin I 0.027 ng/mL 0-0.300 2017 6:45pm 2017 7:40pm Hepatitis B Surface Antigen Negative Negative 2017 5:45pm 06/04 9:07am Performed at: [facility] [id number] Multiple Spindle Screw Machine Operator: Dylon Wyman MD, Phone: [phone] Microbiology Results Procedure Source Organism/Result Collection Date/Time Result Date/Time Result Status Blood Culture Blood NO GROWTH AFTER 48 HOURS 3:35am 06/05/2017 3:41am Preliminary Blood Culture Blood ENTEROCOCCUS SPECIES 2017 3:35am 06/05/2017 8: 20am Preliminary Procedures Procedure Status Date Provider(s) PRP I/GADIEL INIT REDUC >5 YR Completed 10/26/16 CHITRA SALAZAR MD PERFORMANCE OF URINARY FILTRATION, <6 HRS/DAY Completed 01/14/17 PONCHO LEWIS X-ray of chest, two views Active 10/23/16 CHITRA SALAZAR MD X-ray of chest, two views Active 01/13/17 JACINDA ELLIOTT MD Computed tomography of chest with contrast Active 01/14/17 PERNELL SNEED MD X-ray of chest, two views Active 02/11/17 YANY DE LA VEGA MD X-ray of chest, two views Active 04/13/17 MICHI BOONE NP X-ray of chest, two views Active 06/03/17 JACINDA ELLIOTT MD Computed tomography of brain without radiopaque contrast Active 06/03/17 JACINDA ELLIOTT MD Encounters Encounter Location Arrival/Admit Date Discharge/Depart Date Attending Provider Discharged Inpatient [facility] 06/03/17 5:25am 06/05/17 2:57pm CAITLYN MCCALLUM MD Departed Emergency Room [facility] 04/13/17 11:44am 04/13 2:11pm LUIS CARLOS GENAO MD Registered Clinic [facility] 02/11/17 10:23am YANY DE LA VEGA MD Discharged Inpatient [facility] 01/13/17 11:05pm 5:58pm CAITLYN MCCALLUM MD Registered Surgical Day Care [facility] 10/26/16 6:13am HCITRA SALAZAR MD Departed Emergency Room [facility] 09/14/16 10:38pm 09/15 3:57am JACINDA ELLIOTT MD
[2017-06-13] MEDS ORDERED: NITROGLYCERIN 2% OINT 1 GM PKT TOP ONE (06:45)
[2017-06-13] MEDS ORDERED: FUROSEMIDE INJ 10 MG/ML 4 ML VIAL IV ONE (06:45)
[2017-06-13 06:53] LABS: BASOPHILS % 0.4 % (0.0-1.0); EOSINOPHILS # (AUTO) 0.6 (0.0-0.4); EOSINOPHILS % 8.3 % (0.0-6.0); HEMATOCRIT 25.2 % (38.2-49.6); HEMOGLOBIN 8.4 g/dL (14.0-18.0); LYMPHOCYTES # (AUTO) 1.7 (1.0-3.2); LYMPHOCYTES % 23.3 % (18.0-39.1); MEAN CORPUSCULAR HEMOGLOBIN 29.6 pg (28-32); MEAN CORPUSCULAR HGB CONC 33.3 g/dL (31-35); MEAN CORPUSCULAR VOLUME 88.7 fL (81-99); MONOCYTES # (AUTO) 0.6 (0.2-0.8); MONOCYTES % 8.4 % (4.4-11.3); NEUTROPHILS # (AUTO) 4.3 (2.1-6.9); NEUTROPHILS % 59.2 % (38.7-80.0); PLATELET COUNT 82 x10e3/uL (140-360); RED BLOOD COUNT 2.84 x10e6/uL (4.3-5.7); RED CELL DISTRIBUTION WIDTH 14.1 % (11.7-14.4)
[2017-06-13 06:55] LABS: INR 1.13; PARTIAL THROMBOPLASTIN TIME 34.1 seconds (23.8-35.5); PROTHROMBIN TIME 13.6 seconds (11.9-14.5)
--- NOTE | 2017-06-13 07:01 | Diagnostic Imaging Report ---
EXAM: CHEST 2 VIEWS, PA and lateral INDICATION: Shortness of breath, pneumonia COMPARISON: AP view of the chest June 04, 2017 FINDINGS: LINES/TUBES: None LUNGS: Bilateral interstitial and alveolar opacities. PLEURA: No effusions or pneumothorax. HEART AND MEDIASTINUM: Stable cardiomegaly and vascular congestion. BONES AND SOFT TISSUES: No acute findings. IMPRESSION: Findings most likely represent pulmonary edema. Atypical/viral infection is in the differential. Signed by: Dr. Treva Minor M.D. on 06/13/2017 6:58 AM
[2017-06-13 07:02] LABS: ALBUMIN/GLOBULIN RATIO 0.8 (0.8-2.0); ANION GAP 14.2 mmol/L (8-16); CALCIUM 8.1 mg/dL (8.4-10.2); CREATININE, SERUM 8.21 mg/dL (0.72-1.25); POTASSIUM 4.2 mmol/L (3.5-5.1)
[2017-06-13 07:09] LABS: CREATINE KINASE MB 0.6 ng/mL (0-5.0)
[2017-06-13] MEDS ORDERED: SODIUM CHLORIDE 0.9% 1000ML 1,000 ML ONE (10:14)
[2017-06-13] MEDS ORDERED: ACETAMINOPHEN 325 MG TAB PO ONE (10:45)
[2017-06-13 11:01] LABS: BILIRUBIN,URINE NEGATIVE (NEGATIVE); KETONES,URINE NEGATIVE (NEGATIVE); LEUKOCYTE ESTERASE ,URINE NEGATIVE (NEGATIVE); NITRITE,URINE NEGATIVE (NEGATIVE); PROTEIN,URINE DIPSTICK 3+ (NEGATIVE); URINE UROBILINOGEN 0.2 mg/dL (0.2 - 1)
[2017-06-13 11:03] LABS: CLARITY,URINE SL CLOUDY (CLEAR); COLOR,URINE YELLOW (YELLOW)
[2017-06-13 11:19] LABS: EPITHELIAL CELLS,URINE RARE /LPF; HYALINE CASTS 0-1 (0-1); WBC,URINE (MAN) 0-5 /HPF (0-5)
[2017-06-13] MEDS ORDERED: HYDROCODONE/APAP 5MG-325MG TAB PO ONE (12:30)
[2017-06-13] MEDS ORDERED: CLONIDINE HCL 0.1 MG TAB PO ONE (12:30)
[2017-06-13] MEDS ORDERED: ONDANSETRON HCL INJ 2 MG/ML VIAL IV PRN (13:00)
[2017-06-13] MEDS ORDERED: SODIUM CHLORIDE FLUSH 10 ML SYR INJ PRN (13:00)
[2017-06-13] MEDS ORDERED: KETOROLAC TROMETHAMINE 30 MG/ML VIAL IV STA (14:53)
[2017-06-13] MEDS ORDERED: CLONIDINE HCL 0.1 MG TAB PO STA (14:54)
[2017-06-13] MEDS ORDERED: CEFTRIAXONE SOD 1 GM VIAL IV SCH (15:00)
[2017-06-13] MEDS ORDERED: CLONIDINE HCL 0.1 MG TAB PO SCH (15:15)
[2017-06-13] MEDS ORDERED: KETOROLAC TROMETHAMINE 30 MG/ML VIAL IV SCH (15:15)
[2017-06-13] MEDS ORDERED: LABETALOL HCL 100 MG TAB PO SCH (15:30)
--- NOTE | 2017-06-13 15:47 | Consultation ---
DATE OF CONSULTATION: June 13, 2017 Mr. Tito King is well known to me. He is a gentleman with underlying history of end-stage renal disease, hypertension, recently admitted with pneumonia, fluid overload and was discharged. Presented with shortness of breath. Has some cough, mostly dry. Had some chills yesterday. No fever. No nausea. No vomiting. Workup here included chest x-ray, which shows evidence of possible pulmonary edema. Atypical infection needs to be ruled out. He is currently awake, alert and complaining of headache, but other than that no new complaints. ALLERGIES: NO APPARENT DRUG ALLERGIES. PHYSICAL EXAMINATION VITALS: Blood pressure 151/ , pulse rate 97 and afebrile. HEENT: Cornea clear. Oral mucosa dry. LUNGS: Bibasilar rales. HEART: S1 and S2 audible. ABDOMEN: Otherwise soft and nontender. LOWER EXTREMITY EXAMINATION: Shows no edema. PAST HISTORY: History of hypertension, secondary hyperparathyroidism, anemia of chronic kidney disease. Laboratory test shows white count of 7.22, hemoglobin 8.4. Potassium 4.2 and creatinine 8.2. IMPRESSION 1. Underlying congestive heart failure. 2. Hypertension. 3. Headaches likely due to hypertension as well: Headache is mostly in the occipital area. 4. Underlying pneumonia cannot be ruled out: Will start empiric antibiotics. Will give him a shot of Toradol for headache. In the meantime, start Procardia XL 60 mg twice a day. Will give clonidine 1 time dose now. Arrange for dialysis. Please see orders. Job#: [id number] PR
[2017-06-13] MEDS ORDERED: ACETAMINOPHEN 325 MG TAB PO PRN (16:00)
[2017-06-13 16:27] LABS: FERRITIN 1501.59 ng/mL (21.81-274.66)
[2017-06-13 16:35] VITALS: BP 157/99
[2017-06-13 16:43] VITALS: BP 157/99
[2017-06-13] MEDS: SEVELAMER CARBONATE 800 MG TAB PO SCH (17:21)
[2017-06-13] MEDS: LABETALOL HCL 100 MG TAB PO SCH ×2 (17:21→20:31)
[2017-06-13 19:15] VITALS: BP 153/98
[2017-06-13] MEDS: NIFEDIPINE CR 30 MG TAB PO SCH (20:31)
[2017-06-13] MEDS: CEFTRIAXONE SOD 1 GM VIAL IV SCH (20:31)
[2017-06-13] MEDS: HEPARIN SOD (PORCINE) 5,000 UNIT/ML VIAL SC SCH (20:32)
--- NOTE | 2017-06-13 21:17 | History and Physical ---
PRIMARY CARE PHYSICIAN: Dr. Foster. CHIEF COMPLAINT: Shortness of breath. HISTORY OF PRESENT ILLNESS: This is a 42-year-old man with a history of end-stage renal disease and for the past 4 years on dialysis, now developing shortness of breath. He dialyzed Saturday. He developed shortness of breath overnight. Therefore, he came to the hospital. He was noted to have cough but no fever. Here he was found to have bronchopneumonia and pulmonary edema. He is admitted for further evaluation and management. PAST MEDICAL HISTORY: End-stage renal disease on hemodialysis for the past 4 years, hypertension, pneumonia, congestive heart failure type unknown, pleural effusion, mild mitral regurgitation and trace tricuspid regurgitation. PAST SURGICAL HISTORY: Inguinal hernia repair. ALLERGIES: PER THE ELECTRONIC MEDICAL RECORDS. FAMILY HISTORY/SOCIAL HISTORY: Patient is . He has 1 child. No alcohol, illicit drugs or cigarettes. MEDICATIONS: Per the electronic medical records. Medications reviewed. REVIEW OF SYSTEMS: Denies any dizziness, chest pain. VITAL SIGNS: Reviewed. PHYSICAL EXAMINATION GENERAL APPEARANCE: A tired-appearing man resting in bed. HEENT: Anicteric. CARDIOVASCULAR: Normal S1/S2. LUNGS: He has reduced breath sounds throughout. ABDOMEN: Soft, nontender, nondistended. EXTREMITIES: He has left arm bruit. SKIN: Dry. PSYCHIATRIC: Flat affect. LABS: Reviewed. ASSESSMENT AND PLAN: This is a 42-year-old man. 1. Pulmonary edema. Will remove fluid by dialysis. 2. End-stage renal disease on hemodialysis. Nephrology consulted. 3. Hypertensive urgency. Continue calcium channel kevin and add beta kevin. 4. Bronchopneumonia. Continue antibiotics. . 5. Likely diastolic congestive heart failure. Will obtain a BNP and monitor fluid status. 6. Normocytic anemia, moderate. Will obtain anemia panel. 7. Overweight state. BMI is 27.9. His glucose level is 97. No need to check his hemoglobin A1c. 8. Prophylaxis. Will use heparin and Pepcid. 9. Disposition. Monitor closely. Follow up labs in the morning. Job#: [id number] EV
[2017-06-14] VITALS: BP 167/100
[2017-06-14 00:27] VITALS: BP 141/83
[2017-06-14 04:00] VITALS: BP 146/87
[2017-06-14 06:40] LABS: BASOPHILS % 0.5 % (0.0-1.0); EOSINOPHILS # (AUTO) 0.5 (0.0-0.4); EOSINOPHILS % 9.4 % (0.0-6.0); HEMOGLOBIN 8.1 g/dL (14.0-18.0); LYMPHOCYTES # (AUTO) 1.2 (1.0-3.2); LYMPHOCYTES % 22.2 % (18.0-39.1); MEAN CORPUSCULAR HEMOGLOBIN 29.8 pg (28-32); MEAN CORPUSCULAR HGB CONC 33.8 g/dL (31-35); MEAN CORPUSCULAR VOLUME 88.2 fL (81-99); MONOCYTES # (AUTO) 0.6 (0.2-0.8); MONOCYTES % 10.5 % (4.4-11.3); NEUTROPHILS # (AUTO) 3.2 (2.1-6.9); NEUTROPHILS % 57.2 % (38.7-80.0); PLATELET COUNT 88 x10e3/uL (140-360); RED BLOOD COUNT 2.72 x10e6/uL (4.3-5.7); RED CELL DISTRIBUTION WIDTH 14.3 % (11.7-14.4)
[2017-06-14 07:02] LABS: ALBUMIN 2.9 g/dL (3.5-5.0); ALBUMIN/GLOBULIN RATIO 0.8 (0.8-2.0); CALCIUM 8.4 mg/dL (8.4-10.2); CREATININE, SERUM 5.91 mg/dL (0.72-1.25)
[2017-06-14] MEDS ORDERED: LABETALOL HCL 100 MG TAB PO SCH (07:30)
--- NOTE | 2017-06-14 07:41 | Progress Note ---
DATE: June 14, 2017 TIME: 7:15 a.m. OVERNIGHT: No shortness of breath. Less cough. REVIEW OF SYSTEMS: Denies any dizziness, chest pain. No fever. Not in distress. PHYSICAL EXAM VITAL SIGNS: Reviewed. GENERAL: A tired-appearing man resting in bed. HEENT: Nonicteric. CARDIOVASCULAR: Normal S1/S2. LUNGS: Moderate breath sounds. Reduced at base. ABDOMEN: Soft, nontender, nondistended. EXTREMITIES: Left arm bruit. SKIN: Dry. PSYCHIATRIC: Flat affect. LABS: Reviewed. MEDICATIONS: Reviewed. ASSESSMENT: A 42-year-old man. 1. Pulmonary edema/diastolic congestive heart failure. 2. Hypertensive urgency. 3. End-stage renal disease, on hemodialysis. 4. Bronchopneumonia. 5. Normocytic anemia, moderate. 6. Overweight state, body mass index 27.9. PLAN 1. Wean oxygen off. 2. Continue antibiotics. 3. Remove nitro patch . 4. Titrate beta-blockers up and continue channel kevin. 5. Monitor blood pressure. If stable this afternoon, patient is able to do well room air, possible discharge later today. 6. Follow up labs. Job#: [id number] CQ
[2017-06-14] MEDS: SEVELAMER CARBONATE 800 MG TAB PO SCH ×3 (08:54→18:26)
[2017-06-14] MEDS: CEFTRIAXONE SOD 1 GM VIAL IV SCH (08:54)
[2017-06-14] MEDS: HEPARIN SOD (PORCINE) 5,000 UNIT/ML VIAL SC SCH (08:55)
[2017-06-14] MEDS: NIFEDIPINE CR 30 MG TAB PO SCH (08:55)
[2017-06-14] MEDS ORDERED: AZITHROMYCIN 250MG/NS 100 ML 100 ML IV SCH (09:00)
[2017-06-14 11:40] VITALS: BP 146/88
[2017-06-14 12:49] VITALS: BP 123/68
[2017-06-14 16:00] VITALS: BP 130/74
[2017-06-14] MEDS ORDERED: PROCARDIA XL60 MG PO (18:47)
[2017-06-14] MEDS ORDERED: LABETALOL HCL200 MG PO (18:48)
--- NOTE | 2017-07-07 14:03 | Discharge Summary ---
PRINCIPAL DIAGNOSES 1. Pulmonary edema. 2. Diastolic congestive heart failure exacerbation. 3. Hypertensive urgency. 4. End-stage renal disease, on hemodialysis. 5. Bronchopneumonia. 6. Normocytic anemia, moderate. 7. Overweight state, body mass index 27.9. SECONDARY DIAGNOSIS: End-stage renal disease. CHIEF COMPLAINT: Shortness of breath. HISTORY OF PRESENT ILLNESS: A 42-year-old man developing shortness of breath. Refer to the H and P for further details. HOSPITAL COURSE: The patient was found to have bronchopneumonia, pulmonary edema and diastolic congestive heart failure exacerbation. Received medical therapy. He had hypertensive urgency. Medications were titrated. End-stage renal disease, on hemodialysis, and received hemodialysis. Normocytic anemia was monitored. The patient's blood pressure medications and calcium channel kevin were managed. The patient was treated with therapy for bronchopneumonia and improved, and subsequently discharged home. DISCHARGE MEDICATIONS: Per electronic medical record. FOLLOWUP: Primary care doctor in 1 week. CONDITION ON DISCHARGE: Stable and improving. DISCHARGE LOCATION: Home. BRO CARROLL MD Job#: [id number] OR
== END 2017-06-14 21:30 | disposition home or self-care (01) ==
LOC: ER 06:07 → ERHOLD 13:40 → IMCU 15:37
PROVIDERS: ADMIT Internal Medicine; ATTEND Internal Medicine
PROC: 5A1D70Z Performance of Urinary Filtration, Intermittent, Less than 6 Hours Per Day (ICD-10-PCS; principal; 2017-06-13)
DX: I13.2 Hypertensive heart and chronic kidney disease with heart failure and with stage 5 chronic kidney disease, or end stage renal disease (principal); I50.30 Unspecified diastolic (congestive) heart failure; N18.6 End stage renal disease; I16.0 Hypertensive urgency; Z99.2 Dependence on renal dialysis; J18.0 Bronchopneumonia, unspecified organism; D64.9 Anemia, unspecified; E66.3 Overweight; Z68.27 Body mass index [BMI] 27.0-27.9, adult; R51 Headache
CPT/HCPCS: 36415 ×2; 71046; 80053 ×2; 81001; 82550; 82553; 82728; 83540; 83605; 83880; 84466; 84484; 85025 ×2; 85610; 85730; 87040; 87086; 90937; 93005; 99284; G0378 ×2; J0696 ×2; J1644 ×2; J1940; J7030; 90962

== ENCOUNTER → 2017-09-09 | Outpatient (CLI) | payer BC, OTHER ==
[~2017-09-09] MED LIST changes: +LABETALOL HCL200 MG PO; +PROCARDIA XL60 MG PO
--- NOTE | 2017-09-09 13:53 | Diagnostic Imaging Report ---
PROCEDURE:URINARY BLADDER ULTRASOUND COMPARISON:None. INDICATIONS:Urgency CONCLUSION: Please refer to renal and urinary bladder ultrasound performed at the same date and time for full dictated report. Dictated by: Jose Galaviz M.D. on 09/09/2017 at 13:57 Electronically approved by: Jose Galaviz M.D. on 09/09/2017 at 13:57
--- NOTE | 2017-09-09 13:53 | Diagnostic Imaging Report ---
PROCEDURE:Ultrasound kidney and bladder COMPARISON:None. INDICATIONS:Urinary urgency TECHNIQUE: Villarreal scale and color Doppler ultrasound kidneys with pre-and post void urinary bladder ultrasound. FINDINGS: Right: 9.4 x 2.9 x 3.4 cm. Cortical thickness 0.6 cm. Left: 8.1 x 4.2 x 3 cm. Cortical thickness 1 cm. Both kidneys demonstrate increased ependymal echogenicity. No conspicuous mass, stone or cyst. No hydronephrosis. Prevoid bladder volume: 5 mL Post void bladder volume: 1 mL Survey views of the urinary bladder are limited by decompression. Bladder wall thickness 0.6 cm. There is insufficient bladder volume to evaluate for ureteral patency. CONCLUSION: 1. The kidneys are atrophic in keeping with chronic medical renal disease. 2. limited evaluation of the bladder. There is relative wall thickening likely secondary to decompression, with the differential to include cystitis in the appropriate context. Dictated by: Jose Galaviz M.D. on 09/09/2017 at 13:56 Electronically approved by: Jose Galaviz M.D. on 09/09/2017 at 13:56
== END | disposition home or self-care (01) ==
LOC: US 11:29
PROVIDERS: ATTEND Internal Medicine Nephrology
DX: N18.6 End stage renal disease (principal); R39.15 Urgency of urination
CPT/HCPCS: 76770; 76857

== ENCOUNTER → 2017-12-24 | Outpatient (CLI) | payer BC, OTHER ==
--- NOTE | 2017-12-24 16:32 | Diagnostic Imaging Report ---
EXAM: Complete Abdominal Ultrasound INDICATION: Abdominal pain COMPARISON: None. TECHNIQUE: Transverse and longitudinal images of the upper abdomen were obtained. FINDINGS: Liver: Size: 16.6 cm in the right midclavicular line, normal Appearance: Normal echogenicity, smooth contour Mass: No focal masses Spleen: Size: 13.7 cm in length, enlarged Echogenicity: Normal Mass: No focal masses Gallbladder: Stones/Sludge: Mild sludge in the lumen of the gallbladder Wall: 0.5 cm. Slightly thickened. Appearance: No pericholecystic fluid or hydrops. Sonographic Ramirez's Sign: Negative Bile Ducts: Intrahepatic Ducts: No dilatation Extrahepatic Ducts: Common bile duct measures 0.5 cm, no dilatation Pancreas: Visualized portions of the pancreatic head, neck and proximal body are normal. Kidneys: Length: Right 9.7 cm Left 9.2 cm Echogenicity: Increased Collecting System: No hydronephrosis Stone: None Cyst/Mass: None Vessels: Aorta: Visualized portions are normal Inferior Vena Cava: Visualized portions are normal Main Portal Vein: 0.7 cm, normal size with hepatopetal flow. Free Fluid: Small amount of ascites. IMPRESSION: Small amount of sludge in the lumen of the gallbladder. The gallbladder wall is thickened measuring 0.5 cm. No pericholecystic fluid is seen. The common bile duct measures 0.5 cm. Enlarged spleen measuring 13.7 cm in length. Small amount of ascites. Signed by: Dr. Adam Muro M.D. on 12/24/2017 4:29 PM
== END ==
LOC: RAD 14:08
PROVIDERS: ATTEND Internal Medicine Nephrology
DX: R10.13 Epigastric pain (principal)
CPT/HCPCS: 76700

== ENCOUNTER 2018-02-21 05:42 | Observation (INO) | payer BC, OTHER ==
[2018-02-19 13:06] LABS: BASOPHILS % 0.7 % (0.0-1.0); EOSINOPHILS # (AUTO) 0.6 (0.0-0.4); EOSINOPHILS % 11.2 % (0.0-6.0); HEMATOCRIT 34.2 % (38.2-49.6); HEMOGLOBIN 10.5 g/dL (14.0-18.0); LYMPHOCYTES # (AUTO) 1.2 (1.0-3.2); LYMPHOCYTES % 20.7 % (18.0-39.1); MEAN CORPUSCULAR HEMOGLOBIN 26.6 pg (28-32); MEAN CORPUSCULAR HGB CONC 30.7 g/dL (31-35); MEAN CORPUSCULAR VOLUME 86.8 fL (81-99); MONOCYTES # (AUTO) 0.7 (0.2-0.8); MONOCYTES % 12.1 % (4.4-11.3); NEUTROPHILS # (AUTO) 3.1 (2.1-6.9); NEUTROPHILS % 54.9 % (38.7-80.0); PLATELET COUNT 96 x10e3/uL (140-360); RED BLOOD COUNT 3.94 x10e6/uL (4.3-5.7); RED CELL DISTRIBUTION WIDTH 19.8 % (11.7-14.4)
[2018-02-19 13:12] LABS: INR 1.14; PROTHROMBIN TIME 15.6 seconds (11.9-14.5)
[2018-02-19 13:13] LABS: PARTIAL THROMBOPLASTIN TIME 36.1 seconds (23.8-35.5)
[2018-02-19 13:17] LABS: ANION GAP 16.9 mmol/L (8-16); CALCIUM 9.6 mg/dL (8.4-10.2); CREATININE, SERUM 7.11 mg/dL (0.72-1.25); POTASSIUM 4.9 mmol/L (3.5-5.1)
[~2018-02-21] VITALS: Ht 167.6 cm; Wt 70.3 kg
--- OUTSIDE RECORDS SUMMARY | 2018-02-21 05:45 | XMS REPORT | Clinical Summary ---
Author Author JESSICA [facility] Organization [facility] Address Unknown Phone Unavailable Care Team Providers Care Air Pollution Inspector Name Role Phone Dinora Sales MD Unavailable Mike Foster MD PCP Allergies No Known Allergies Medications End Date Status Medication Sig Dispensed Refills Start Date Active labetalol (NORMODYNE) 200 Take 200 mg 0 MG tablet by mouth 2 (two) times daily. 01/21/2019 Active NIFEdipine (ADALAT CC) 90 Take 1 tablet 60 tablet 11 MG 24 hr tablet (90 mg total) 8 by mouth 2 (two) times daily. 01/21/2019 Active sevelamer (RENVELA) 800 Take 1 tablet 90 tablet 11 mg tablet (800 mg 8 total) by mouth 3 (three) times daily with meals. 01/21/2019 Active hydrALAZINE (APRESOLINE) Take 1 tablet 90 tablet 11 25 MG tablet (25 mg total) 8 by mouth every 8 (eight) hours. 01/22/2019 Active losartan (COZAAR) 50 MG Take 1 tablet 30 tablet 11 tablet (50 mg total) 8 by mouth daily. 02/04/2019 Active hydrocortisone 1 % cream Apply 30 g 0 topically 2 8 (two) times daily. 01/08/2018 Discontinued CYCLOSPORINE MODIFIED Take 75 mg by 0 ORAL mouth 2 (two) times daily. 01/08/2018 Discontinued carvedilol (COREG) 25 MG Take 25 mg by 0 tablet mouth 2 (two) times daily with breakfast and dinner. 01/08/2018 Discontinued doxazosin (CARDURA) 4 MG Take 8 mg by 0 tablet mouth nightly . 01/08/2018 Discontinued predniSONE (DELTASONE) 20 Take 20 mg by 0 MG tablet mouth daily 1/2 tab daily. 01/08/2018 Discontinued sodium bicarbonate 648 MG Take 1 tablet 0 tablet by mouth 3 (three) times daily. 01/08/2018 Discontinued cloNIDine (CATAPRES) 0.2 Take 0.2 mg 0 MG tablet by mouth as needed. 01/08/2018 Discontinued cholecalciferol, vitamin Take 1,000 0 D3, 1,000 unit Units by capsuleIndications: ESRD mouth daily. (end stage renal disease) ([facility]), Pre-transplant evaluation for chronic kidney disease 01/21/2018 Discontinued NIFEdipine (ADALAT CC) 60 Take 60 mg by 0 MG 24 hr mouth daily. tabletIndications: ESRD (end stage renal disease) ([facility]), Pre-transplant evaluation for chronic kidney disease 01/21/2018 Discontinued sevelamer (RENVELA) 800 Take 3,200 mg 0 mg tabletIndications: by mouth 2 ESRD (end stage renal (two) times disease) ([facility]) daily . 02/20/2018 baclofen (LIORESAL) 10 MG Take 1 tablet 60 tablet 0 tablet (10 mg total) 8 by mouth 3 (three) times daily as needed (prn hiccup) for up to 30 days. 02/18/2018 acetaminophen-codeine Take 1 tablet 20 tablet 0 (TYLENOL #3) 300-30 mg by mouth 8 per tablet every 6 (six) hours as needed for up to 10 days. Max Daily Amount: 4 tablets Active Problems Patient Care Coordination Note ANABEL Hooker Problem Noted Date Thrombocytopenia 01/20/2018 Colitis 01/14/2018 ESRD (end stage renal disease) 11/24/2013 ESRD on hemodialysis Encounters Care Team Description Date Type Specialty Gopal Gomez MD Right leg pain (Primary Dx); Acute pain of right knee; Right leg swelling; ESRD on dialysis ([facility]) 02/08/2018 Emergency Emergency Medicine 02/08/2018 Travel Walter Vazquez MD Rectal bleeding (Primary Dx); External hemorrhoid, bleeding; Bright red blood per rectum; ESRD (end stage renal disease) ([facility]); Anemia, unspecified type 02/04/2018 Emergency Emergency Medicine 02/03/2018 Travel Nikki Amaya MD R & L CATH (+/- SATS & CARDIAC OUTPUT) 01/16/2018 Surgery Jose Vega MD Giveon, Ron, MD Colitis (Primary Dx); ESRD on dialysis ([facility]); Generalized abdominal pain; ESRD on hemodialysis ([facility]) 01/14/2018 [facility] General Internal Medicine - Encounter 01/21/2018 Shante Foreman RN Waitlist Maintenance 01/14/2018 Telephone Transplant Carmen Gallagher MD ESRD (end stage renal disease) ([facility]) 01/10/2018 Hospital Radiology Encounter Carmen Gallagher MD ESRD (end stage renal disease) ([facility]) 01/10/2018 Hospital Cardiology Encounter Carmen Gallagher MD 01/10/2018 Outside Orders Shanell Calderon MD Finch, Jennifer L., MD ESRD (end stage renal disease) ([facility]) (Primary Dx) 01/08/2018 Evaluation Transplant Jv Patino Appointment 12/24/2017 Telephone Transplant Shante Foreman RN ESRD (end stage renal disease) ([facility]) (Primary Dx); Awaiting transplantation of kidney 12/22/2017 Documentation Transplant Shante Foreman RN Patient awaiting renal transplant (Primary Dx) 03/28/2017 Orders Only Transplant after 02/20/2017 Family History Medical History Relation Name Comments Kidney disease Brother Unremarkable Brother Unremarkable Brother Unremarkable Daughter Unremarkable Father Cancer Mother Cancer Sister colon Kidney disease Sister Unremarkable Sister Unremarkable Sister Relation Name Status Comments Brother Alive Brother Alive Brother Alive Daughter Alive Father Mother Sister Alive Sister Alive Sister Alive Social History Date Tobacco Use Types Packs/Day Years Used Former Smoker Smokeless Tobacco: Former Quit: 03/25/2003 User Comments: Quit more than 20 yrs ago. Alcohol Use Drinks/Week oz/Week Comments No Sex Assigned at Date Recorded Not on file Industry Job Start Date Occupation Not on file Not on file Not on file Travel End Travel History Travel Start No recent travel history available. Last Filed Vital Signs Time Taken Vital Sign Reading 02/08/2018 2:40 PM HEALTH CLINICIAN Blood Pressure 135/78 02/08/2018 2:40 PM HEALTH CLINICIAN Pulse 82 02/08/2018 2:40 PM HEALTH CLINICIAN Temperature 36.7 C (98.1 F) 02/08/2018 2:40 PM HEALTH CLINICIAN Respiratory Rate 16 02/08/2018 1:47 PM HEALTH CLINICIAN Oxygen Saturation 99% - Inhaled Oxygen - Concentration 02/08/2018 11:56 AM HEALTH CLINICIAN Weight 77.6 kg (171 lb) 02/08/2018 11:56 AM HEALTH CLINICIAN Height 167.6 cm (5' 6") 02/08/2018 11:56 AM HEALTH CLINICIAN Body Mass Index 27.6 Plan of Treatment Health Maintenance Due Date Last Done Comments INFLUENZA VACCINE 12/23/2017 Procedures Comments Procedure Name Priority Date/Time Associated Diagnosis VENOUS DOPPLER LEG, RIGHT STAT 02/08/2018 1:38 PM HEALTH CLINICIAN CBC W/PLT COUNT & AUTO STAT 02/03/2018 DIFFERENTIAL 11:21 PM HEALTH CLINICIAN PT/APTT STAT 02/03/2018 11:21 PM HEALTH CLINICIAN CBC W/PLT COUNT & AUTO STAT 02/03/2018 DIFFERENTIAL 11:21 PM HEALTH CLINICIAN BASIC METABOLIC PANEL (7) STAT 02/03/2018 11:21 PM HEALTH CLINICIAN CARDIAC CATH REPORT - 01/22/2018 SCAN 2:40 PM CDT VASCULAR DIAGRAM -SCAN 01/22/2018 2:40 PM CDT RHYTHM STRIP - SCAN 01/22/2018 2:40 PM CDT ECHOCARDIOGRAM REPORT - 01/21/2018 SCAN 6:30 PM CDT TISSUE EXAM AP Routine 01/21/2018 8:07 AM CDT CBC W/PLT COUNT & AUTO Routine 01/21/2018 DIFFERENTIAL 4:53 AM CDT PHOSPHORUS Routine 01/21/2018 4:53 AM CDT MAGNESIUM Routine 01/21/2018 4:53 AM CDT BASIC METABOLIC PANEL (7) Routine 01/21/2018 4:53 AM CDT CBC W/PLT COUNT & AUTO Routine 01/21/2018 DIFFERENTIAL 4:53 AM CDT US CORE BIOPSY Routine 01/20/2018 4:50 PM CDT CBC W/PLT COUNT & AUTO Routine 01/20/2018 DIFFERENTIAL 5:46 AM CDT PHOSPHORUS Routine 01/20/2018 5:46 AM CDT MAGNESIUM Routine 01/20/2018 5:46 AM CDT BASIC METABOLIC PANEL (7) Routine 01/20/2018 5:46 AM CDT CBC W/PLT COUNT & AUTO Routine 01/20/2018 DIFFERENTIAL 5:46 AM CDT CBC W/PLT COUNT & AUTO Routine 01/19/2018 DIFFERENTIAL 5:55 AM CDT PHOSPHORUS Routine 01/19/2018 5:55 AM CDT MAGNESIUM Routine 01/19/2018 5:55 AM CDT BASIC METABOLIC PANEL (7) Routine 01/19/2018 5:55 AM CDT CBC W/PLT COUNT & AUTO Routine 01/19/2018 DIFFERENTIAL 5:55 AM CDT HEMODIALYSIS INPATIENT Routine 01/18/2018 11:54 AM CDT CBC W/PLT COUNT & AUTO Routine 01/18/2018 DIFFERENTIAL 6:39 AM CDT KAPPA / LAMBDA LIGHT Routine 01/18/2018 CHAINS, SERUM 6:39 AM CDT PROTEIN ELECTROPHORESIS, AP Routine 01/18/2018 SERUM 6:39 AM CDT PHOSPHORUS Routine 01/18/2018 6:39 AM CDT MAGNESIUM Routine 01/18/2018 6:39 AM CDT BASIC METABOLIC PANEL (7) Routine 01/18/2018 6:39 AM CDT CBC W/PLT COUNT & AUTO Routine 01/18/2018 DIFFERENTIAL 6:39 AM CDT TRANSFUSION SERVICE 01/17/2018 REPORT - SCAN 5:53 PM CDT ULTRAFILTRATION HD CRRT Routine 01/17/2018 11:49 AM CDT CBC W/PLT COUNT & AUTO Routine 01/17/2018 DIFFERENTIAL 8:55 AM CDT PHOSPHORUS Routine 01/17/2018 8:55 AM CDT MAGNESIUM Routine 01/17/2018 8:55 AM CDT BASIC METABOLIC PANEL (7) Routine 01/17/2018 8:55 AM CDT CBC W/PLT COUNT & AUTO Routine 01/17/2018 DIFFERENTIAL 8:55 AM CDT PCI 01/16/2018 Heart failure, 1:29 PM CDT unspecified HF chronicity, unspecified heart failure type (HCC) R & L CATH (+/- SATS & 01/16/2018 Heart failure, CARDIAC OUTPUT) 1:29 PM CDT unspecified HF chronicity, unspecified heart failure type (HCC) TYPE AND SCREEN, Routine 01/16/2018 AUTOMATED 8:27 AM CDT FOLATE, RBC Routine 01/16/2018 6:29 AM CDT RETICULOCYTE COUNT Routine 01/16/2018 6:29 AM CDT CBC W/PLT COUNT & AUTO Routine 01/16/2018 DIFFERENTIAL 6:25 AM CDT PERIPHERAL BLOOD SMEAR - Routine 01/16/2018 HOLD ONLY 6:25 AM CDT CBC W/PLT COUNT & AUTO Routine 01/16/2018 DIFFERENTIAL 6:25 AM CDT PT/APTT Routine 01/16/2018 6:25 AM CDT FIBRINOGEN Routine 01/16/2018 6:25 AM CDT D-DIMER Routine 01/16/2018 6:25 AM CDT RHEUMATOID FACTOR TITER Routine 01/16/2018 6:24 AM CDT VITAMIN B12 Routine 01/16/2018 6:24 AM CDT RHEUMATOID FACTOR AB, Routine 01/16/2018 REFLEX TO TITER 6:24 AM CDT PROTEIN ELECTROPHORESIS, AP Routine 01/16/2018 SERUM 6:24 AM CDT HIV-1 ANTIGEN WITH Routine 01/16/2018 HIV-1/2 ANTIBODY 6:24 AM CDT ANTI-NUCLEAR ANTIBODY Routine 01/16/2018 (JESSIE) 6:24 AM CDT HEPATITIS B SURFACE Routine 01/16/2018 ANTIGEN 6:23 AM CDT PHOSPHORUS Routine 01/16/2018 6:23 AM CDT MAGNESIUM Routine 01/16/2018 6:23 AM CDT BASIC METABOLIC PANEL (7) Routine 01/16/2018 6:23 AM CDT EBV VIRAL LOAD Routine 01/16/2018 6:23 AM CDT CMV PCR, QUANTITATIVE Routine 01/16/2018 6:23 AM CDT TRANSESOPHAGEAL ECHO Routine 01/16/2018 12:00 AM CDT CONT WAVE PULSED DOPPLER Routine 01/15/2018 8:11 PM CDT COLOR-FLOW MAPPING Routine 01/15/2018 8:11 PM CDT CBC W/PLT COUNT & AUTO Routine 01/15/2018 DIFFERENTIAL 3:49 AM CDT PHOSPHORUS Routine 01/15/2018 3:49 AM CDT MAGNESIUM Routine 01/15/2018 3:49 AM CDT BASIC METABOLIC PANEL (7) Routine 01/15/2018 3:49 AM CDT CBC W/PLT COUNT & AUTO Routine 01/15/2018 DIFFERENTIAL 3:[address] CHEST WITHOUT IV Routine 01/15/2018 CONTRAST 3:[address] ABDOMEN/PELVIS WITH IV STAT 01/14/2018 CONTRAST 5:50 PM CDT CBC W/PLT COUNT & AUTO STAT 01/14/2018 DIFFERENTIAL 1:52 PM CDT CBC W/PLT COUNT & AUTO STAT 01/14/2018 DIFFERENTIAL 1:52 PM CDT LIPASE STAT 01/14/2018 1:52 PM CDT HEPATIC FUNCTION PANEL STAT 01/14/2018 1:52 PM CDT BASIC METABOLIC PANEL (7) STAT 01/14/2018 1:52 PM CDT AMYLASE STAT 01/14/2018 1:52 PM CDT ECHOCARDIOGRAM REPORT - 01/10/2018 SCAN 3:23 PM CDT US ABDOMEN COMPLETE Routine 01/10/2018 ESRD (end stage renal 3:08 PM CDT disease) (HCC) 2D ECHO W/ DOPPLER Routine 01/10/2018 ESRD (end stage renal (CW/PW/COLOR) 1:38 PM CDT disease) (HCC) FLOW PRA CLASS II WITH Routine 11/18/2017 Patient awaiting renal REFLEX TO ANTIBODY 10:34 AM CDT transplant SPECIFICITY FLOW PRA CLASS I WITH Routine 11/18/2017 Patient awaiting renal REFLEX TO ANTIBODY 10:34 AM CDT transplant SPECIFICITY FLOW PRA CLASS II WITH Routine 08/23/2017 Patient awaiting renal REFLEX TO ANTIBODY 12:23 PM CDT transplant SPECIFICITY FLOW PRA CLASS I WITH Routine 08/23/2017 Patient awaiting renal REFLEX TO ANTIBODY 12:23 PM CDT transplant SPECIFICITY FLOW PRA CLASS II WITH Routine 04/04/2017 Patient awaiting renal REFLEX TO ANTIBODY 3:36 PM HEALTH CLINICIAN transplant SPECIFICITY FLOW PRA CLASS I WITH Routine 04/04/2017 Patient awaiting renal REFLEX TO ANTIBODY 3:36 PM HEALTH CLINICIAN transplant SPECIFICITY after 02/20/2017 Results * Venous doppler leg, right (02/08/2018 1:38 PM HEALTH CLINICIAN) Ejection Fraction [facility] Impressions Performed At Right Impression [facility] 1. There is no deep venous obstruction in the common femoral, profunda [facility] femoral, femoral, popliteal, posterior tibial or peroneal veins. 2. There is no superficial venous obstruction in the great saphenous vein. Conclusions Summary Venous duplex imaging and compression of the right lower extremity was performed. The veins were adequately visualized. The right venous system was patent and compressible with no evidence of thrombus. The venous Doppler waveforms were pulsatile indicating possible elevated right heart filling pressure. Signature Velocities are measured in cm/s ; Diameters are measured in cm Narrative Performed At PV LAB - Lower Extremities DVT Study [facility] Demographics [facility] Patient NameJANINE WILLINGHAM Date of Study 02/08/2018 URIEL 42 Visit [id number] of 1975 Referring GOPAL GOMEZ Room Number ED13 Physician Coal Carrier Kevin ZafarlPhysicijimbo Malik T Procedure Type of Study: Veins: Lower Extremities DVT Study, VENOUS DOPPLER LEG, RIGHT. Indications for Study:Knee pain and Leg pain . Patient Status:STAT. Study Location:Portable. Technical Quality:Adequate visualization. Risk Factors History of Disease + +----+--------+ !Diagnosis !Date!Comments! + +----+--------+ !History/Risk Factors: !!leg pain! + +----+--------+ Procedure Note Interface, External Ris In - 02/08/2018 5:23 PM HEALTH CLINICIAN PV LAB - Lower Extremities DVT Study Demographics Patient Name JANINE WILLINGHAM Date of Study 02/08/2018 URIEL Age 42 Visit Number [id number] Gender Male Accession Number [id number] Date of 1975 Referring GOPAL GOMEZ Room Number ED13 Physician Coal Carrier Asher Diaz Interpreting Maximino Bailey Physician MD Amisha Malik RVT Procedure Type of Study: Veins: Lower Extremities DVT Study, VENOUS DOPPLER LEG, RIGHT. Indications for Study:Knee pain and Leg pain . Patient Status:STAT. Study Location:Portable. Technical Quality:Adequate visualization. Risk Factors History of Disease + +----+--------+ !Diagnosis !Date!Comments! + +----+--------+ !History/Risk Factors: ! !leg pain! + +----+--------+ Impressions Right Impression 1. There is no deep venous obstruction in the common femoral, profunda femoral, femoral, popliteal, posterior tibial or peroneal veins. 2. There is no superficial venous obstruction in the great saphenous vein. Conclusions Summary Venous duplex imaging and compression of the right lower extremity was performed. The veins were adequately visualized. The right venous system was patent and compressible with no evidence of thrombus. The venous Doppler waveforms were pulsatile indicating possible elevated right heart filling pressure. Signature Velocities are measured in cm/s ; Diameters are measured in cm Performing Organization Address City/State/Zipcode Phone Number [facility] * PT/aPTT (02/03/2018 11:21 PM HEALTH CLINICIAN) Only the most recent of 2 results within the time period is included. Protime 16.2 (H) 11.7 - 14.7 seconds [facility] INR 1.3 <=5.9 [facility] PTT 30.5 22.5 - 36.0 seconds [facility] Specimen Blood - Arm, Left Narrative Performed At RECOMMENDED COUMADIN/WARFARIN INR THERAPY RANGES [facility] STANDARD DOSE: 2.0 - 3.0 Includes: PROPHYLAXIS for venous thrombosis, [facility] systemic embolization; TREATMENT for venous thrombosis and/or pulmonary embolus. HIGH RISK: Target INR is 2.5-3.5 for patients with mechanical heart valves. Performing Organization Address City/State/Zipcode Phone Number [facility] [address] [place] [address] MEDICAL CENTER * CBC with platelet count + automated diff (02/03/2018 11:21 PM HEALTH CLINICIAN) Only the most recent of 9 results within the time period is included. WBC 6.5 3.5 - 10.5 K/L [facility] RBC 3.95 (L) 4.63 - 6.08 M/L [facility] Hemoglobin 10.6 (L) 13.7 - 17.5 GM/DL [facility] Hematocrit 33.8 (L) 40.1 - 51.0 % [facility] MCV 85.6 79.0 - 92.2 fL [facility] MCH 26.8 25.7 - 32.2 pg [facility] MCHC 31.4 (L) 32.3 - 36.5 GM/DL [facility] RDW 19.3 (H) 11.6 - 14.4 % [facility] Platelets 131 (L) 150 - 450 K/CU MM [facility] MPV 9.8 9.4 - 12.4 fL [facility] nRBC 0 0 - 0 /100 WBC [facility] % Neutros 58 % [facility] % Lymphs 21 % [facility] % Monos 8 % [facility] % Eos 11 % [facility] % Baso 1 % [facility] # Neutros 3.82 1.78 - 5.38 K/L [facility] # Lymphs 1.39 1.32 - 3.57 K/L [facility] # Monos 0.52 0.30 - 0.82 K/L [facility] # Eos 0.72 (H) 0.04 - 0.54 K/L [facility] # Baso 0.08 0.01 - 0.08 K/L [facility] Immature 0 0 - 1 % [facility] Granulocytes-Relative [facility] Specimen Blood - Arm, Left Performing Organization Address City/State/Zipcode Phone Number [facility] [address] [place] [address] [facility] * Basic Metabolic Panel (02/03/2018 11:21 PM HEALTH CLINICIAN) Only the most recent of 9 results within the time period is included. Sodium 141 136 - 145 meq/L [facility] Potassium 4.8 3.5 - 5.1 meq/L [facility] Chloride 103 98 - 107 meq/L [facility] CO2 25 22 - 29 meq/L [facility] BUN 46 (H) 7 - 21 mg/dL [facility] Creatinine 8.75 (H) 0.57 - 1.25 mg/dL [facility] Glucose 103 70 - 105 mg/dL [facility] Calcium 9.1 8.4 - 10.2 mg/dL [facility] EGFR 7Comment: ESTIMATED GFR IS NOT mL/min/1.73 sq m [facility] ACCURATE CREATININE [facility] CLEARANCE IN PREDICTING GLOMERULAR FILTRATION RATE. ESTIMATED GFR IS NOT APPLICABLE FOR DIALYSIS PATIENTS. Specimen Blood - Arm, Left Performing Organization Address City/State/Zipcode Phone Number [facility] [address] [place], [place] [id number] MEDICAL CENTER * CARDIAC CATH REPORT - SCAN (01/22/2018 2:40 PM CDT) Narrative Performed At * VASCULAR DIAGRAM -SCAN (01/22/2018 2:40 PM CDT) Narrative Performed At * RHYTHM STRIP - SCAN (01/22/2018 2:40 PM CDT) Narrative Performed At * ECHOCARDIOGRAM REPORT - SCAN (01/21/2018 6:30 PM CDT) Narrative Performed At * Tissue Exam (01/21/2018 8:07 AM CDT) Case Report Surgical Pathology [facility] Report [facility] Case: [id number] Authorizing Provider:Abdullahi Amaya MD (Mark) Collected: 01/21/2018806 Ordering Location: [address] Received: 01/21/2018806 Service Pathologist: Amado Soliz MD Specimen:Abdomen, FAT PAD BX EVALUATION FOR AMYLOID DIAGNOSIS SOFT TISSUE, "FAT PAD", [facility] ULTRASOUND-GUIDED CORE NEEDLE [facility] BIOPSY: FIBROADIPOSE TISSUE WITHOUT SIGNIFICANT HISTOPATHOLOGIC ALTERATION. [place] SPECIAL STAIN IS NEGATIVE FOR AMYLOID. Signing Pathologist Direct Phone Line: [phone] CPT Code(s) 47275, 12344 [facility] CLINICAL HISTORY Evaluate for amyloid [facility] SPECIMEN SOURCE Right abdomen fat pad biopsy [facility] GROSS DESCRIPTION The specimen is received in a [facility] formalin-filled container and [facility] labeled with the patient's information and labeled "abdomen right fat pad biopsy" and consists of two yellow-white core biopsies both measuring 1.5 cm in length, submitted entirely A1. CG/pl MICROSCOPIC DESCRIPTION Performed. [facility] SPECIAL STUDIES The following special studies [facility] were performed on this case [facility] and the interpretation is incorporated in the diagnostic report above: BLOCK A1- [place]. Gross assessment was [facility] performed at [place], [facility], [address] [place] [address], Technical component was [facility] performed at [place], [facility], [address] [place] [address], Professional component [facility] was performed at [place], [facility], [address] [place] [address], Specimen Tissue - Abdomen Performing Organization Address [facility] [place] [address] [phone] [place] [address] * Phosphorus (01/21/2018 4:53 AM CDT) Only the most recent of 7 results within the time period is included. Phosphorus 5.6 (H) 2.3 - 4.7 mg/dL [facility] Specimen Blood - Arm, Right Performing Organization Address [facility] [place] [address] [phone] * Magnesium (01/21/2018 4:53 AM CDT) Only the most recent of 7 results within the time period is included. Magnesium 2.3 1.6 - 2.6 mg/dL [facility] Specimen Blood - Arm, Right Performing Organization Address [facility] [place] [address] [phone] [place] [address] * US Core Biopsy (01/20/2018 4:50 PM CDT) Narrative Performed At FINAL REPORT [facility] Ultrasound guided subcutaneous fat pad biopsy dated 01/20/2018 Procedure: Subcutaneous fat pad biopsy Pre-procedure diagnosis: Suspicious for amyloidosis Post-procedure diagnosis: Suspicious for amyloidosis Radiologist: Carly Amaya MD Echocardiologist: None Sedation: None. Anesthesia: 1% Xylocaine local anesthesia. Technique/Specimen removed: After obtaining informed consent, ultrasound-guided core biopsy of the subcutaneous fat pad was performed under usual sterile technique. After local anesthetic, core biopsy was performed under ultrasound guidance. 5 passes were obtained with an 18-gauge core biopsy needle. Complication: None Estimated Blood Loss: None Graft/Implants: None Impression: Successful ultrasound-guided core biopsy of the subcutaneous fat pad. Signed: Carly Amaya MD Report Verified Date/Time:01/20/2018 17:14:49 Reading Location: [address] Ultrasound Reading Room Procedure Note Interface, External Ris In - 01/20/2018 5:17 PM CDT FINAL REPORT Ultrasound guided subcutaneous fat pad biopsy dated 01/20/2018 Procedure: Subcutaneous fat pad biopsy Pre-procedure diagnosis: Suspicious for amyloidosis Post-procedure diagnosis: Suspicious for amyloidosis Radiologist: Carly Amaya MD Echocardiologist: None Sedation: None. Anesthesia: 1% Xylocaine local anesthesia. Technique/Specimen removed: After obtaining informed consent, ultrasound-guided core biopsy of the subcutaneous fat pad was performed under usual sterile technique. After local anesthetic, core biopsy was performed under ultrasound guidance. 5 passes were obtained with an 18-gauge core biopsy needle. Complication: None Estimated Blood Loss: None Graft/Implants: None Impression: Successful ultrasound-guided core biopsy of the subcutaneous fat pad. Signed: Carly Amaya MD Report Verified Date/Time: 01/20/2018 17:14:49 Reading Location: [address] Ultrasound Reading Room Performing Organization Address City/State/Zipcode Phone Number RIS * HEMODIALYSIS INPATIENT (01/18/2018 11:54 AM CDT) Narrative Performed At Mar Gomez RN 01/18/2018 11:56 AM Received pt awake alert responsive. Explained hd tx plan today pt agreed verbalized understanding.Cannulated left avf without difficulty using buttonhole technique. Lab Results Component Value Date WBC 6.8 01/18/2018 HGB 11.9 (L) 01/18/2018 HCT 38.7 (L) 01/18/2018 MCV 85.4 01/18/2018 PLT 106 (L) 01/18/2018 Chemistry Component Value Date/Time NA 135 (L) 01/18/2018 0639 K 5.1 01/18/2018 0639 CL 99 01/18/2018 0639 CO2 25 01/18/2018 0639 BUN 32 (H) 01/18/2018 0639 CREATININE 8.60 (H) 01/18/2018 0639 Component Value Date/Time CALCIUM 8.5 01/18/2018 0639 ALKPHOS 167 (H) 01/14/2018 1352 AST 20 01/14/2018 1352 ALT 11 01/14/2018 1352 BILITOT 1.2 01/14/2018 1352 Results for JANINE WILLINGHAM ( ) as of 01/18/2018 11:55 Ref. Range 01/16/2018 06:23 Hepatitis B Surface Ag Latest Ref Range: NonreactiveNonreactive To monitor pt. * [place] / lambda light chains, serum (01/18/2018 6:39 AM CDT) [place] Lt Chain,Free 205.1 (H) 3.3 - 19.4 mg/L [facility] Lambda Lt Chain,Free 176.0 (H) 5.7 - 26.3 mg/L [facility] [place]/Lambda,Free 1.17 0.26 - 1.65 [facility] Comment: [facility] Free kappa/lambda ratio in serum of normal individuals is 0.26-1.65. Excess production of free kappa or lambda chains can alter this ratio. Monoclonal free light chains are found in serum of patients with multiple myeloma, Waldenstrom's macroglobulinemia, mu-heavy chain disease, primary amyloidosis, light chain deposition disease, monoclonal gammopathy of undetermined significance, and lymphoproliferative disorders. Measurement of free light chain concentration in serum is useful for diagnosis, prognosis, monitoring disease activity and following response to therapy of these disorders. Specimen Blood - Arm, Right Narrative Performed At Performing Lab [facility] Email Data Source [place] [address] [place] [address] Jericho Franco MD, PhD, EROS Performing Organization Address City/State/Zipcode Phone Number [facility], [address] [address], [place] [facility] [place] [address] * Protein electrophoresis, serum (01/18/2018 6:39 AM CDT) Only the most recent of 2 results within the time period is included. Albumin Fraction 3.7 3.5 - 5.5 g/dL [facility] Alpha 1 Fraction 0.4 0.2 - 0.4 g/dL [facility] Alpha 2 Fraction 0.6 0.5 - 0.9 g/dL [facility] Beta Fraction 0.9 0.6 - 1.1 g/dL [facility] Gamma Globulin Fraction 1.8 (H) 0.7 - 1.7 g/dL [facility] Interpretation Slight polyclonal elevation of [facility] gamma fraction, suggesting [facility] mild chronic inflammatory response. No monoclonal bands detected. No significant change from previous study performed 01-16-18. Pathologist: Rebekah Martinez MD [facility] (electronic signature) [facility] Protein, Total 7.4 6.0 - 8.3 gm/dL [facility] Specimen Blood - Arm, Right Performing Organization Address City/State/Zipcode Phone Number [facility] [address] [place] [address] [facility] * TRANSFUSION SERVICE REPORT - SCAN (01/17/2018 5:53 PM CDT) Narrative Performed At * ULTRAFILTRATION HD CRRT (01/17/2018 11:49 AM CDT) Narrative Performed At Adilson Castillo RN 01/17/2018 11:49 AM Pt had ultrafiltration done this morning via left forearm AVF. Tolerated treatment well, NET UF=3 L. Lab Results Component Value Date WBC 4.9 01/16/2018 HGB 10.9 (L) 01/16/2018 HCT 36.2 (L) 01/16/2018 MCV 85.0 01/16/2018 PLT 101 (L) 01/16/2018 Lab Results Component Value Date HEPBSAG Nonreactive 01/16/2018 ] Lab Results Component Value Date HEPBIGM Nonreactive 01/19/2014 HEPCAB Nonreactive 01/19/2014 Lab Results Component Value Date HIV1X2 Nonreactive 01/19/2014 Lab Results Component Value Date GLUCOSE 73 01/16/2018 CALCIUM 8.5 01/16/2018 NA 137 01/16/2018 K 4.7 01/16/2018 CO2 30 (H) 01/16/2018 CL 96 (L) 01/16/2018 BUN 33 (H) 01/16/2018 CREATININE 8.23 (H) 01/16/2018 Coag Profile: Protime Date Value Ref Range Status 01/16/2018 16.6 (H) 11.7 - 14.7 seconds Final INR Date Value Ref Range Status 01/16/2018 1.3 <=5.9 Final PTT Date Value Ref Range Status 01/16/2018 32.4 22.5 - 36.0 seconds Final * Type and screen, automated (01/16/2018 8:27 AM CDT) ABO/RH AUTOMATED (BEAKER) O POSITIVE [facility] Ab Scrn NEGATIVE [facility] Specimen Blood Performing Organization Address [facility] Phone Number [address] * Reticulocyte count (01/16/2018 6:29 AM CDT) % Retic 1.5 0.5 - 1.8 % [facility] Specimen Blood Performing Organization Address [facility] Phone Number [address] * Folate, RBC (01/16/2018 6:29 AM CDT) Folate, Rbc 753 >280 ng/mL RBC [facility] Specimen Blood Narrative Performed At Performing Lab [facility] [address] [address] Jericho Franco MD, PhD, EROS Performing Organization Address City/[facility] Phone Number [facility] [place], [address] [place], [place] [address] [address] * Peripheral Blood Smear - Hold only (01/16/2018 6:25 AM CDT) Peripheral Smear Save saved [facility] Specimen Blood Performing Organization Address City/[facility]/Zipcode Phone Number [address] [address] [phone] [place] [address] * Fibrinogen (01/16/2018 6:25 AM CDT) Fibrinogen 318 225 - 434 mg/dl [facility] Specimen Blood Performing Organization Address [facility] [place] [place] [address] [phone] * D-dimer (01/16/2018 6:25 AM CDT) D-Dimer, Quant 1.31 (H) <0.50 MG/L FEU [facility] Specimen Blood Narrative Performed At Intended Use: The D-Dimer Assay can be used to aid in the diagnosis of Deep Vein [facility] Thrombosis (DVT) and Pulmonary Embolism Disease (PED). [facility] In patients with low pre-test probability, various studies concerning STA Liatest D-dimer test have reported that with a cutoff value of 0.50 MG/L FEU, the Negative Predictive Value (NPV) regarding the exclusion of thrombosis is within 95-100% range. Performing Organization Address [facility] [place] [place] [address] [phone] * HIV-1 Antigen with HIV-1/2 Antibody (01/16/2018 6:24 AM CDT) HIV-1 Antigen with HIV NON-REACTIVE Nonreactive [facility] 1&2 Antibody [facility] Specimen Blood Performing Organization Address [facility] Phone Number [address] [address] [phone] [place] [address] * Rheumatoid factor Ab, reflex to titer (01/16/2018 6:24 AM CDT) Rheumatoid Factor Positive [facility] Specimen Blood Performing Organization Address [facility]/Zipcode Phone Number [address] [address] [facility] * Rheumatoid factor titer (01/16/2018 6:24 AM CDT) Rheumatoid Factor TTR 1:2 [facility] Specimen Blood Performing Organization Address City/[facility] Phone Number [address] [address] [facility] * Anti-Nuclear Antibody (JESSIE) (01/16/2018 6:24 AM CDT) JESSIE Negative Negative [facility] Specimen Blood Narrative Performed At Test performed by IFA method. [facility] Test performed by IFA method. [facility] Performing Organization Address City/[facility] Phone Number [address] [address] [phone] * Vitamin B12 (01/16/2018 6:24 AM CDT) Vitamin B12 617 213 - 816 pg/mL [facility] Specimen Blood Performing Organization Address City/[facility] Phone Number [address] [address] [phone] [place] [address] * EBV Viral Load (01/16/2018 6:23 AM CDT) EBV Viral Load Negative or below the linear [facility] range of the assay (<500 [facility] copies/mL) Specimen Blood Narrative Performed At This assay was performed by real-time PCR for the detection of the Oralia-Day [facility] virus (EBV) gene EBNA-1.The test is composed of (1) DNA extraction from [facility] patient specimen, and (2) real-time PCR amplification and detection with [id number] primers and probes. A well-conserved region of the EBNA-1 gene is targeted, along with an internal control sequence used to confirm PCR amplification. Asymptomatic carriers and viral genetic variation, among other factors, can affect the accuracy of nucleic acid testing; therefore, results should be interpreted in light of clinical data. This test was developed and its performance characteristics determined by the [facility] Pathology Department, Section of Molecular Pathology. It has not been cleared or approved by the U.S. Food and Drug Administration (FDA), since FDA approval is not required for clinical use of the test. Validation was done as required by The Clinical Laboratory Improvement Amendments of 1988. Performing Organization Address [facility]/Zipcode Phone Number [facility] [address] [place] [address] [facility] * CMV PCR, quantitative (01/16/2018 6:23 AM CDT) CMV DNA Viral Load Negative or below the linear [facility] range of the assay (<375 [facility] copies/mL) Specimen Blood Narrative Performed At Cytomegalovirus (CMV) infection can cause significant disease in [facility] immunosuppressed patients. However, it is common for CMV to manifest as a [facility] limited infection which is of no clinical significance in immunosuppressed patients or in healthy individuals. Viral load measurements are helpful to identify clinical CMV infection and to guide the pre-emptive management of antiviral therapy.For treatment of CMV infection due to reactivation in transplant recipients, a threshold between 4,000 and 5,000 copies/mL is suggested.For treatment of primary CMV infection, a lower threshold can be used. CMV infection may also be monitored using weekly serial measurements. Serial measurements of CMV DNA viral load can be evaluated by identifying a 10-fold change, as well as assessing the CMV DNA viral load and the clinical context for each patient. The plasma CMV DNA viral load was detected using quantitative polymerase chain reaction and fluorescent monitoring of a specific hybridized probe. Genetic variation and other factors can affect the accuracy of nucleic acid testing. Therefore, the results should be interpreted in light of clinical data. A negative result may not exclude the presence of CMV disease. This test was developed and its performance characteristics determined by the [facility] Pathology Department, Section of Molecular Pathology. It has not been cleared or approved by the U.S. Food and Drug Administration (FDA), since FDA approval is not required for clinical use of the test. Validation was done as required by The Clinical Laboratory Improvement Amendments of 1988. Performing Organization Address [facility] Phone Number [place] [phone] [place] [address] [facility] * Hepatitis B surface antigen (01/16/2018 6:23 AM CDT) hepatitis B Surface Ag NON-REACTIVE Nonreactive [facility] Specimen Blood Performing Organization Address City/State/Zipcode Phone Number [facility] [address] [place] [address] MEDICAL CENTER * Transesophageal echo (01/16/2018 12:00 AM CDT) Ejection Fraction [facility] ECHO [facility]ART[facility] MKCKESSON CPA Narrative Performed At Transesophageal Echocardiography Report (RUTHANN) [facility] ECHO [facility]ARTLAB [facility]ographics [facility] Patient Name JANINE WILLINGHAM Date of Study 01/16/2018 URIEL [id number] Male Visit Number [id number] Room Number 747 Number Date of Birth1975Referring Physician Monique Escudero Age42 year(s)[employer] Aidan Haynes Interpreting Gopal Davila Physician MD Fellow June PIERCE Procedure Type of Study RUTHANN procedure:TRANSESOPHAGEAL ECHO Indications:PFO . Clinical History CKD,ESRD,HTN Height: 65 inches Weight: 73.48 kg (162 lbs) BSA: 1.81 m^2 BMI: 26.96 kg/m^2 HR: 92 bpm BP: 113/68 mmHg Procedure Informed Consent RUTHANN procedure notes Moderate sedation by performing MD using 2 .5mg IV versed and 62.5mcg IV fentanyl. . Summary IV saline contrast injection was negative for a PFO (patent foramen ovale) at rest . LA appendage morphology is simple (wind sock) . No LA appendage Thrombus visualized. LA is enlarged but severity assessment is unreliable due to known RUTHANN sector size limitation. Signature Findings Rhythm/BPRegular sinus rhythm during the exam. Left Ventricle All of the LV segments have low normal contractility . Global LV systolic function lower limits of normal . Left AtriumLA appendage morphology is simple (wind sock) . No LA appendage Thrombus visualized. LA is enlarged but severity assessment is unreliable due to known RUTHANN sector size limitation. RightNormal RV size and systolic function. Ventricle Right Atrium RA size is mildly dilated. Atrial SeptumIV saline contrast injection was negative for a PFO (patent foramen ovale) at rest . Aortic Valve Normal AoV structure and function. Mitral Valve Mild MV leaflet thickening. Moderate mitral regurgitation. 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 TricuspidNormal TV structure and function. ValveMild tricuspid regurgitation. Estimated peak systolic PA pressure is 30-35 mmHg + RA pressure. Pulmonic Valve Normal PV structure and function. AortaAortic root size (SInus of Valsalva diameter) is normal . There is no evidence of aortic plaque. PericardiumA small pericardial effusion is present . The pericardial effusion appears circumferential . Procedure Note Interface, External Ris In - 01/21/2018 5:54 PM CDT Transesophageal Echocardiography Report (RUTHANN) Demographics Patient Name JANINE WILLINGHAM Date of Study 01/16/2018 URIEL Gender Male Visit Number [id number] Race Unknown Room Number 747 Number Date of 1975 Referring Physician Monique Escudero Age 42 year(s) [employer] Aidan Haynes Interpreting Gopal Davila, Physician Fellow June PIERCE Procedure Type of Study RUTHANN procedure:TRANSESOPHAGEAL ECHO Indications:PFO . Clinical History CKD,ESRD,HTN Height: 65 inches Weight: 73.48 kg (162 lbs) BSA: 1.81 m^2 BMI: 26.96 kg/m^2 HR: 92 bpm BP: 113/68 mmHg Procedure Informed Consent RUTHANN procedure notes Moderate sedation by performing MD using 2 .5mg IV versed and 62.5mcg IV fentanyl. . Summary IV saline contrast injection was negative for a PFO (patent foramen ovale) at rest . LA appendage morphology is simple (wind sock) . No LA appendage Thrombus visualized. LA is enlarged but severity assessment is unreliable due to known RUTHANN sector size limitation. Signature Findings Rhythm/BP Regular sinus rhythm during the exam. Left Ventricle All of the LV segments have low normal contractility . Global LV systolic function lower limits of normal . Left Atrium LA appendage morphology is simple (wind sock) . No LA appendage Thrombus visualized. LA is enlarged but severity assessment is unreliable due to known RUTHANN sector size limitation. Right Normal RV size and systolic function. Ventricle Right Atrium RA size is mildly dilated. Atrial Septum IV saline contrast injection was negative for a PFO (patent foramen ovale) at rest . Aortic Valve Normal AoV structure and function. Mitral Valve Mild MV leaflet thickening. Moderate mitral regurgitation. 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 Tricuspid Normal TV structure and function. Valve Mild tricuspid regurgitation. Estimated peak systolic PA pressure is 30-35 mmHg + RA pressure. Pulmonic Valve Normal PV structure and function. Aorta Aortic root size (SInus of Valsalva diameter) is normal . There is no evidence of aortic plaque. Pericardium A small pericardial effusion is present . The pericardial effusion appears circumferential . Performing Organization Address City/State/Zipcode Phone Number [facility]ART[facility] MKCKESSON CPACS * CT chest without IV contrast (01/15/2018 3:24 AM CDT) Narrative Performed At FINAL REPORT [facility] CLINICAL INDICATION: Dyspnea, lung nodules in the lung bases on CT abdomen performed 01/14/2018 COMPARISON: None Multiple axial images of the chest were performed without IV contrast. This exam was performed according to our departmental dose-optimization program, which includes automated exposure control, adjustment of the mA and/or kV according to patient size and/or use of the iterative reconstruction technique. FINDINGS: Lung parenchyma: There are several semisolid nodules in both lungs. The largest is in the left lower lobe and measures 1.1 x 0.6 cm. A right lower lobe nodule measures 0.8 x 0.4 cm. A left lower lobe nodule measures 0.9 x 0.6 cm. Several smaller semisolid nodules are present elsewhere in the mid and upper lungs. Curvilinear opacity in the left lower lobe, lingula and left upper lobe suggests scarring or atelectasis. Pleural effusion: Trace bilateral effusions Pneumothorax: None. Tracheobronchial tree: No significant findings. Pulmonary vasculature: No significant findings. Cardiac contours and great vessels: Cardiomegaly Mediastinum: Trace pericardial effusion Lymph Nodes: No adenopathy in the mediastinum or derek. Skeleton: No acute abnormality. Limited images of upper abdomen: Upper abdominal ascites IMPRESSION: Several semisolid nodules in both lungs. The largest is in the left lower lobe and measures 1.1 x 0.6 cm. Differential diagnostic considerations include infectious, inflammatory and neoplastic processes. Please see below for published recommendations for follow-up. Cardiomegaly, trace bilateral pleural effusions, trace pericardial effusion and ascites. 2017 Fleischner Society Recommendations for Subsolid Lung Nodule Follow-Up based on size (average of long- and short-axis diameters). Use most suspicious nodule for followup. Single <6 mm Ground glass: No routine follow-up <6 mm Part solid: No routine follow-up > or=6 mm Ground glass: CT at 6-12 months to confirm persistence, then CT every 2 years until 5 years > or=6 mm Part solid: CT at 3-6 months to confirm persistence, If unchanged and solid component remains<6mm, annual CT should be performed for 5 years. Multiple < 6mm: CT at 3-6 months.If stable consider CT at 2 and 4 years. > or=6mm: CT at 3-6 months. Subsequent management based on the most suspicious nodule(s). Signed: Matty Cheney MD Report Verified Date/Time:01/15/2018 03:35:26 Reading Location: [address] Reading Room Procedure Note Interface, External Ris In - 01/15/2018 3:37 AM CDT FINAL REPORT CLINICAL INDICATION: Dyspnea, lung nodules in the lung bases on CT abdomen performed 01/14/2018 COMPARISON: None Multiple axial images of the chest were performed without IV contrast. This exam was performed according to our departmental dose-optimization program, which includes automated exposure control, adjustment of the mA and/or kV according to patient size and/or use of the iterative reconstruction technique. FINDINGS: Lung parenchyma: There are several semisolid nodules in both lungs. The largest is in the left lower lobe and measures 1.1 x 0.6 cm. A right lower lobe nodule measures 0.8 x 0.4 cm. A left lower lobe nodule measures 0.9 x 0.6 cm. Several smaller semisolid nodules are present elsewhere in the mid and upper lungs. Curvilinear opacity in the left lower lobe, lingula and left upper lobe suggests scarring or atelectasis. Pleural effusion: Trace bilateral effusions Pneumothorax: None. Tracheobronchial tree: No significant findings. Pulmonary vasculature: No significant findings. Cardiac contours and great vessels: Cardiomegaly Mediastinum: Trace pericardial effusion Lymph Nodes: No adenopathy in the mediastinum or derek. Skeleton: No acute abnormality. Limited images of upper abdomen: Upper abdominal ascites IMPRESSION: Several semisolid nodules in both lungs. The largest is in the left lower lobe and measures 1.1 x 0.6 cm. Differential diagnostic considerations include infectious, inflammatory and neoplastic processes. Please see below for published recommendations for follow-up. Cardiomegaly, trace bilateral pleural effusions, trace pericardial effusion and ascites. 2017 Fleischner Society Recommendations for Subsolid Lung Nodule Follow-Up based on size (average of long- and short-axis diameters). Use most suspicious nodule for followup. Single <6 mm Ground glass: No routine follow-up <6 mm Part solid: No routine follow-up > or=6 mm Ground glass: CT at 6-12 months to confirm persistence, then CT every 2 years until 5 years > or=6 mm Part solid: CT at 3-6 months to confirm persistence, If unchanged and solid component remains<6mm, annual CT should be performed for 5 years. Multiple < 6mm: CT at 3-6 months. If stable consider CT at 2 and 4 years. > or=6mm: CT at 3-6 months. Subsequent management based on the most suspicious nodule(s). Signed: Matty Cheney MD Report Verified Date/Time: 01/15/2018 03:35:26 Reading Location: [address] Reading Room Performing Organization Address City/State/Zipcode Phone Number [facility] * CT abdomen/pelvis with IV contrast (01/14/2018 5:50 PM CDT) Narrative Performed At FINAL REPORT [place] HISTORY : Abdominal pain, unspecified NAUSEA EMESIS Technique: Multiple axial images of the abdomen and pelvis were performed with the administration of IV and oral contrast from the lung bases to the pubic symphysis. Delayed images were also obtained. This exam was performed according to our departmental dose optimization program which includes automated exposure control, adjustment of the mA and/or kV according to patient size and/or use of iterative reconstructive technique. COMPARISON : None COMMENT : There are trace bilateral pleural effusions. Adjacent consolidation most likely represents atelectasis. There are several small nodular lesion/foci in the lung bases. For example, in the left lower lobe, there is a 0.8 cm nodular density. An additional nodular density is also seen in the right lung base. These nodular foci are nonspecific. While these may be related to an infectious/inflammatory process, neoplastic/metastatic process cannot be excluded. Further evaluation with a dedicated chest CT is advised. The visualized spleen, adrenal glands, contracted gallbladder, pancreas, stomach and duodenum are within normal limits. The kidneys are atrophic. There is hepatomegaly. There is reflux of contrast into the inferior vena cava and hepatic veins. The findings could be due to right-sided cardiac dysfunction/failure. There is cardiomegaly. There is a small amount of pericardial fluid/effusion. There is no abdominal, retroperitoneal or pelvic lymphadenopathy. There is some nonspecific infiltration of the subcutaneous fat around the umbilicus of unclear etiology/significance. This appears to extend intra-abdominally. No organized fluid collections are definitively seen. Findings could be due to some localized cellulitis/inflammation. The findings can be closely followed by CT to exclude the possibility of a mass. No free air is identified in the abdomen or pelvis. There is a small amount of nonspecific free fluid in the abdomen and pelvis. No findings of any bowel obstruction. The small bowel is within normal limits. There is some long segment wall thickening identified of the colon extending from the distal transverse colon to the sigmoid colon. While the wall thickening could be due to underdistention, a degree of nonspecific inflammatory versus infectious versus ischemic colitis cannot be entirely excluded, however. The appendix is questionably visualized. However, there are no definite CT findings to suggest appendicitis at this time. The prostate gland is enlarged. The seminal vesicles are within normal limits. Impression: 1. Hepatomegaly. 2. Cardiomegaly with findings suggestive of right-sided cardiac dysfunction/failure. 3. Small amount of abdominal ascites/free fluid. 4. Atrophic kidneys. 5. Several nodular foci in the lung bases. Correlation with a dedicated chest CT is advised. 6. Nonspecific long segment wall thickening of the left colon, underdistention versus nonspecific colitis. 7. Nonspecific edema/inflammation in the subcutaneous fat/soft tissues around the umbilicus with some questionable extension intra-abdominally. No organized fluid collections are seen. Signed: Keri Walters MD Report Verified Date/Time:01/14/2018 18:09:26 Reading Location: [facility] C013Y CT Body Reading Room Procedure Note Interface, External Ris In - 01/14/2018 6:11 PM CDT FINAL REPORT HISTORY : Abdominal pain, unspecified NAUSEA EMESIS Technique: Multiple axial images of the abdomen and pelvis were performed with the administration of IV and oral contrast from the lung bases to the pubic symphysis. Delayed images were also obtained. This exam was performed according to our departmental dose optimization program which includes automated exposure control, adjustment of the mA and/or kV according to patient size and/or use of iterative reconstructive technique. COMPARISON : None COMMENT : There are trace bilateral pleural effusions. Adjacent consolidation most likely represents atelectasis. There are several small nodular lesion/foci in the lung bases. For example, in the left lower lobe, there is a 0.8 cm nodular density. An additional nodular density is also seen in the right lung base. These nodular foci are nonspecific. While these may be related to an infectious/inflammatory process, neoplastic/metastatic process cannot be excluded. Further evaluation with a dedicated chest CT is advised. The visualized spleen, adrenal glands, contracted gallbladder, pancreas, stomach and duodenum are within normal limits. The kidneys are atrophic. There is hepatomegaly. There is reflux of contrast into the inferior vena cava and hepatic veins. The findings could be due to right-sided cardiac dysfunction/failure. There is cardiomegaly. There is a small amount of pericardial fluid/effusion. There is no abdominal, retroperitoneal or pelvic lymphadenopathy. There is some nonspecific infiltration of the subcutaneous fat around the umbilicus of unclear etiology/significance. This appears to extend intra-abdominally. No organized fluid collections are definitively seen. Findings could be due to some localized cellulitis/inflammation. The findings can be closely followed by CT to exclude the possibility of a mass. No free air is identified in the abdomen or pelvis. There is a small amount of nonspecific free fluid in the abdomen and pelvis. No findings of any bowel obstruction. The small bowel is within normal limits. There is some long segment wall thickening identified of the colon extending from the distal transverse colon to the sigmoid colon. While the wall thickening could be due to underdistention, a degree of nonspecific inflammatory versus infectious versus ischemic colitis cannot be entirely excluded, however. The appendix is questionably visualized. However, there are no definite CT findings to suggest appendicitis at this time. The prostate gland is enlarged. The seminal vesicles are within normal limits. Impression: 1. Hepatomegaly. 2. Cardiomegaly with findings suggestive of right-sided cardiac dysfunction/failure. 3. Small amount of abdominal ascites/free fluid. 4. Atrophic kidneys. 5. Several nodular foci in the lung bases. Correlation with a dedicated chest CT is advised. 6. Nonspecific long segment wall thickening of the left colon, underdistention versus nonspecific colitis. 7. Nonspecific edema/inflammation in the subcutaneous fat/soft tissues around the umbilicus with some questionable extension intra-abdominally. No organized fluid collections are seen. Signed: Keri Walters MD Report Verified Date/Time: 01/14/2018 18:09:26 Reading Location: [facility] C013Y CT Body Reading Room Performing Organization Address City/State/Zipcode Phone Number GE RIS * Lipase (01/14/2018 1:52 PM CDT) Lipase 10 8 - 78 U/L [facility] Specimen Blood - Arm, Left Performing Organization Address [facility] Phone Number [address] [phone] [address] * Amylase (01/14/2018 1:52 PM CDT) Amylase 77 25 - 125 U/L [facility] Specimen Blood - Arm, Left Performing Organization Address [facility] Phone Number [address] [address] [phone] [address] * Hepatic function panel (01/14/2018 1:52 PM CDT) Protein, Total 8.6 (H) 6.0 - 8.3 gm/dL [facility] Albumin 4.4 3.5 - 5.0 g/dL [facility] Total Bilirubin 1.2 0.2 - 1.2 mg/dL [facility] Bilirubin, Direct 0.8 (H) 0.1 - 0.5 mg/dL [facility] Alkaline Phosphatase 167 (H) 40 - 150 U/L [facility] AST 20 5 - 34 U/L [facility] ALT 11 6 - 55 U/L [facility] Specimen Blood - Arm, Left Performing Organization Address [facility] [place] [place] [address] [phone] [address] * ECHOCARDIOGRAM REPORT - SCAN (01/10/2018 3:23 PM CDT) Narrative Performed At * US abdomen complete (01/10/2018 3:08 PM CDT) Narrative Performed At FINAL REPORT [facility] Ultrasound of the Abdomen, 01/10/2018. Clinical History:Abdominal pain, ascites. Comparison: 01/19/2014. Discussion: Sonographic evaluation of the abdomen is performed. Liver: 19.4 cm in length at the right midclavicular line, enlarged. Normal echogenicity.Homogeneous echotexture.No mass.Main portal vein diameter 1.6 cm. Biliary tree:Common duct 4 mm.No biliary dilatation. Gallbladder:No gallstones. Mild diffuse wall thickening. 2 mm polyp.No pericholecystic fluid.Absent sonographic Ramirez sign. Pancreas: Head, body, and proximal tail unremarkable. Ascites:Trace ascites present. Spleen:14.4 cm in length, mildly enlarged. Kidneys: Right kidney 8.9 cm in length, small in size, with cortical thickness of 0.7 cm.Left kidney 8.4 cm in length, normal in size, with cortical thickness of 1.1 cm.Increased cortical echogenicity.No mass.No shadowing calculus.No hydronephrosis. IVC/Aorta:Segments partially seen.Unremarkable. Impression: 1. Hepatosplenomegaly. 2. Trace ascites. 3. 2 mm gallbladder polyp, of doubtful clinical significance. 4. Mild gallbladder wall thickening without convincing evidence for cholecystitis. Findings may reflect hypoproteinemia. 5. Appearance of kidneys compatible with chronic medical renal disease. Signed: Eufemia Corley MD Report Verified Date/Time:01/10/2018 17:09:45 Reading Location: [address] Radiology Reading Room Procedure Note Interface, External Ris In - 01/10/2018 5:11 PM CDT FINAL REPORT Ultrasound of the Abdomen, 01/10/2018. Clinical History: Abdominal pain, ascites. Comparison: 01/19/2014. Discussion: Sonographic evaluation of the abdomen is performed. Liver: 19.4 cm in length at the right midclavicular line, enlarged. Normal echogenicity. Homogeneous echotexture. No mass. Main portal vein diameter 1.6 cm. Biliary tree: Common duct 4 mm. No biliary dilatation. Gallbladder: No gallstones. Mild diffuse wall thickening. 2 mm polyp. No pericholecystic fluid. Absent sonographic Ramirez sign. Pancreas: Head, body, and proximal tail unremarkable. Ascites: Trace ascites present. Spleen: 14.4 cm in length, mildly enlarged. Kidneys: Right kidney 8.9 cm in length, small in size, with cortical thickness of 0.7 cm. Left kidney 8.4 cm in length, normal in size, with cortical thickness of 1.1 cm. Increased cortical echogenicity. No mass. No shadowing calculus. No hydronephrosis. IVC/Aorta: Segments partially seen. Unremarkable. Impression: 1. Hepatosplenomegaly. 2. Trace ascites. 3. 2 mm gallbladder polyp, of doubtful clinical significance. 4. Mild gallbladder wall thickening without convincing evidence for cholecystitis. Findings may reflect hypoproteinemia. 5. Appearance of kidneys compatible with chronic medical renal disease. Signed: Eufemia Corley MD Report Verified Date/Time: 01/10/2018 17:09:45 Reading Location: [address] Radiology Reading Room Performing Organization Address City/State/Zipcode Phone Number GE RIS * 2D Echo W/Doppler(CW/PW/Color) (01/10/2018 1:38 PM CDT) Ejection Fraction [facility] ECHO HEARTLAB [facility] Narrative Performed At Transthoracic Echocardiography Report (TTE) [facility] ECHO HEARTLAB Demographics [facility] Patient Name JANINE WILLINGHAM Date of Study 01/10/2018 URIEL [id number] Male Visit Number [id number] Room Number OP Number Date of Birth1975Referring Physician Aileen Machuca Age42 year(s)[employer] Kourtney Smalls, CS Interpreting [employer] Gastelum Physician Procedure Type of Study TTE procedure:2DECHO W DOPPLER(CW/PW/COLOR) (Routine) Indications:Pre-surgical evaluation of organ transplant. Clinical History ESRD, HTN Height: 65.5 inches Weight: 70.76 kg (156 lbs) BSA: 1.79 m^2 BMI: 25.56 kg/m^2 HR: 71 bpm BP: 147/89 mmHg Summary The left ventricle is chamber size (by vol index) is moderately enlarged (male - LVED vol 90-100ml.m2) . Mild concentric LV hypertrophy. All of the LV segments have low normal contractility . LVEF by Duong's method of disk assessment is lower limits of normal (50-55%) . Degree of diastolic dysfunction (LAP assessment) is inconclusive due to significant MR . RV chamber size is mildly enlarged . Global RV systolic function is mildly reduced . Moderate mitral regurgitation. Mild to moderate tricuspid regurgitation. Estimated peak systolic PA pressure is 45-50 mmHg . A circumferential pericardial effusion is present . It is trivial to small posteriorly and anteriorly and moderate ( 15mm) around the RA. Pulmonary vein flow is consistent with increased LAP . The estimated RA pressure by IVC dynamics 16-20mmHg . Signature Findings Technical Quality: Technically adequate exam. Left Ventricle The left ventricle is chamber size (by vol index) is moderately enlarged (male - LVED vol 90-100ml.m2) . Mild concentric LV hypertrophy. All of the LV segments have low normal contractility . LVEF by Duong's method of disk assessment is lower limits of normal (50-55%) . Degree of diastolic dysfunction (LAP assessment) is inconclusive due to significant MR . Left AtriumLA size is severely enlarged (>48 ml/m2) . Right VentricleRV chamber size is mildly enlarged . Global RV systolic function is mildly reduced . Right Atrium RA size is severely dilated. Aortic Valve Normal AoV structure. There is trace aortic regurgitation. Mitral Valve Normal MV structure. Mild MV leaflet thickening. Moderate mitral regurgitation. Tricuspid ValveTV structure is normal. Mild to moderate tricuspid regurgitation. Estimated peak systolic PA pressure is 45-50 mmHg . Pulmonic Valve Normal PV structure. A trace of, Mild pulmonary regurgitation. AortaAortic root size (SInus of Valsalva diameter) is normal . PericardiumA circumferential pericardial effusion is present . It is trivial to small posteriorly and anteriorly and moderate ( 15mm) around the RA. IVC/SVC/PA/PV/PleuralPulmonary vein flow is consistent with increased LAP . The estimated RA pressure by IVC dynamics 16-20mmHg . Chambers/Structures Left Atrium LA Dimension: 5.85 cmLA Area: 33.57 cm^2 LA Volume: 125.43 ml LA Vol. Index: 70 ml/m^2 Left Ventricle LVIDd: 5.26 cm LVIDs: 4.03 cm LV Septum Diastolic: 1.32 cm LV PW Diastolic: 1.35 cmLV FS: 23.4 % LVEDV Duong's:168.44 ml LVESV Duong's:81.39 mlLVEDVI: 94 ml/m^2 LVEF Duong's: 51.7 %LVESVI: 45 ml/m^2 LVOT Diameter: 2.03 cm Aorta Ao Root S of Annetta.: 2.91 cm Doppler/Quantitative Measurements LVOT Peak Velocity: 1.16 m/s Peak Gradient: 5.42 mmHg Mean Velocity: 0.74 m/s Mean Gradient: 2.55 mmHg LVOT Diameter: 2.03 cmLVOT VTI: 21.46 cm LVOT Area: 3.24 cm^2LVOT SV:69.42 ml LVOT CO: 4.93 l/min LVOT CI: 2.75 l/min/m^2 Procedure Note Interface, External Ris In - 01/10/2018 2:38 PM CDT Transthoracic Echocardiography Report (TTE) Demographics Patient Name JANINE WILLINGHAM Date of Study 01/10/2018 URIEL Gender Male Visit Number [id number] Race Unknown Room Number OP Number Date of 1975 Referring Physician Aileen Machuca Age 42 year(s) [employer] Kourtney Smalls, BENJAMIN Interpreting [employer] Gast[employer]um Physician Procedure Type of Study TTE procedure:2DECHO W DOPPLER(CW/PW/COLOR) (Routine) Indications:Pre-surgical evaluation of organ transplant. Clinical History ESRD, HTN Height: 65.5 inches Weight: 70.76 kg (156 lbs) BSA: 1.79 m^2 BMI: 25.56 kg/m^2 HR: 71 bpm BP: 147/89 mmHg Summary The left ventricle is chamber size (by vol index) is moderately enlarged (male - LVED vol 90-100ml.m2) . Mild concentric LV hypertrophy. All of the LV segments have low normal contractility . LVEF by Duong's method of disk assessment is lower limits of normal (50-55%) . Degree of diastolic dysfunction (LAP assessment) is inconclusive due to significant MR . RV chamber size is mildly enlarged . Global RV systolic function is mildly reduced . Moderate mitral regurgitation. Mild to moderate tricuspid regurgitation. Estimated peak systolic PA pressure is 45-50 mmHg . A circumferential pericardial effusion is present . It is trivial to small posteriorly and anteriorly and moderate ( 15mm) around the RA. Pulmonary vein flow is consistent with increased LAP . The estimated RA pressure by IVC dynamics 16-20mmHg . Signature Findings Technical Quality: Technically adequate exam. Left Ventricle The left ventricle is chamber size (by vol index) is moderately enlarged (male - LVED vol 90-100ml.m2) . Mild concentric LV hypertrophy. All of the LV segments have low normal contractility . LVEF by Duong's method of disk assessment is lower limits of normal (50-55%) . Degree of diastolic dysfunction (LAP assessment) is inconclusive due to significant MR . Left Atrium LA size is severely enlarged (>48 ml/m2) . Right Ventricle RV chamber size is mildly enlarged . Global RV systolic function is mildly reduced . Right Atrium RA size is severely dilated. Aortic Valve Normal AoV structure. There is trace aortic regurgitation. Mitral Valve Normal MV structure. Mild MV leaflet thickening. Moderate mitral regurgitation. Tricuspid Valve TV structure is normal. Mild to moderate tricuspid regurgitation. Estimated peak systolic PA pressure is 45-50 mmHg . Pulmonic Valve Normal PV structure. A trace of, Mild pulmonary regurgitation. Aorta Aortic root size (SInus of Valsalva diameter) is normal . Pericardium A circumferential pericardial effusion is present . It is trivial to small posteriorly and anteriorly and moderate ( 15mm) around the RA. IVC/SVC/PA/PV/Pleural Pulmonary vein flow is consistent with increased LAP . The estimated RA pressure by IVC dynamics 16-20mmHg . Chambers/Structures Left Atrium LA Dimension: 5.85 cm LA Area: 33.57 cm^2 LA Volume: 125.43 ml LA Vol. Index: 70 ml/m^2 Left Ventricle LVIDd: 5.26 cm LVIDs: 4.03 cm LV Septum Diastolic: 1.32 cm LV PW Diastolic: 1.35 cm LV FS: 23.4 % LVEDV Duong's:168.44 ml LVESV Duong's:81.39 ml LVEDVI: 94 ml/m^2 LVEF Duong's: 51.7 % LVESVI: 45 ml/m^2 LVOT Diameter: 2.03 cm Aorta Ao Root S of Annetta.: 2.91 cm Doppler/Quantitative Measurements LVOT Peak Velocity: 1.16 m/s Peak Gradient: 5.42 mmHg Mean Velocity: 0.74 m/s Mean Gradient: 2.55 mmHg LVOT Diameter: 2.03 cm LVOT VTI: 21.46 cm LVOT Area: 3.24 cm^2 LVOT SV:69.42 ml LVOT CO: 4.93 l/min LVOT CI: 2.75 l/min/m^2 Performing Organization Address City[facility] Phone Number [facility] ECHO HEARTLAB [id number] CPACS * FLOW PRA CLASS II WITH REFLEX TO ANTIBODY SPECIFICITY (11/18/2017 10:34 AM CDT) Only the most recent of 3 results within the time period is included. Flow Class II Percent 0 [facility] Positive Flow Class Report [facility] Comments Specimen Blood Narrative Performed At Disclaimer: [facility] This test was developed and its performance characteristics determined by the [facility]. It has not been cleared or approved by the U.S. Food and Drug Administration. The FDA has determined that such clearance or approval is not necessary. This test is used for clinical purposes. It should not be regarded as investigational or for research. This laboratory is certified under the Clinical Laboratory Improvement Amendments of 1988 (CLIA-88) as qualified to perform high complexity clinical laboratory testing. Performing Organization Address City/State/[facility] Phone Number [facility] [address], MS: [id number], [place] [address] CLIA#[id number] CAP#[id number] UNOS#[id number] * FLOW PRA CLASS I WITH REFLEX TO ANTIBODY SPECIFICITY (11/18/2017 10:34 AM CDT) Only the most recent of 3 results within the time period is included. Flow Class I Percent 0 [facility] Positive Flow Class Report [facility] Comments Specimen Blood Narrative Performed At Disclaimer: [facility] This test was developed and its performance characteristics determined by the [facility]. It has not been cleared or approved by the U.S. Food and Drug Administration. The FDA has determined that such clearance or approval is not necessary. This test is used for clinical purposes. It should not be regarded as investigational or for research. This laboratory is certified under the Clinical Laboratory Improvement Amendments of 1988 (CLIA-88) as qualified to perform high complexity clinical laboratory testing. Performing Organization Address City/State/Zipcode Phone Number [facility] [address]ega, MS: [id number], [place] [address] CLIA#[id number] CAP#[id number] UNOS#[id number] after 02/20/2017 Insurance Payer Benefit Subscriber ID Type Phone Address Plan / Group [employer]UE [employer] BCBS OS xxxxxxxxxxxxxxx PPO [phone] [id number] POS/PPO/[place] [address] O [employer] - MGD CARE AETNA HMO xxxxxxxxx HMO/POS POS [place] ([place]) [place] [address] Advance Directives For more information, please contact: [facility] [address] [place], [place] [phone] Date Inactivated Comments Code Status Date Activated 02/03/2018 10:46 PM Full Code 01/17/2018 3:07 AM This code status was determined by: Patient 01/16/2018 3:20 PM Full Code 01/16/2018 1:56 PM This code status was determined by: Patient 01/16/2018 1:56 PM Full Code 01/16/2018 6:25 AM This code status was determined by: Patient
[2018-02-21] MEDS ORDERED: LIDOCAINE HCL 2% 30 ML TUBE ONE (09:48)
[2018-02-21] MEDS ORDERED: BUPIVACAINE 0.25%/EPI 30ML SDV INJ ONE (09:48)
[2018-02-21] MEDS ORDERED: LIDOCAINE HCL 1% LOCAL INJ 20 ML VIAL ONE (09:48)
[2018-02-21] MEDS ORDERED: SODIUM CHLORIDE 0.9% 1000ML 1,000 ML IV SCH (11:59)
[2018-02-21] MEDS: SEVELAMER CARBONATE 800 MG TAB PO SCH ×2 (12:00→17:10)
[2018-02-21] MEDS ORDERED: ACETAMINOPHEN 1000 MG/100 ML IV PRN (12:00)
[2018-02-21] MEDS ORDERED: HYDROMORPHONE 1MG/1ML INJ IV PRN (12:00)
[2018-02-21] MEDS: FENTANYL CITRATE/PF 100MCG/2 ML INJ ONE ×2 (12:22→14:27)
--- NOTE | 2018-02-21 12:42 | Operative Report ---
DATE OF PROCEDURE: February 21, 2018 PREOPERATIVE DIAGNOSIS: Thrombosed, prolapsing, bleeding, internal and external hemorrhoids. POSTOPERATIVE DIAGNOSIS: Thrombosed, prolapsing, bleeding, internal and external hemorrhoids. OPERATION PERFORMED: Internal and external hemorrhoidectomy. COMPOUND WORKER: Kerry GIFFORD. ANESTHESIA: General. COMPLICATIONS: None. ESTIMATED BLOOD LOSS: Minimal. DESCRIPTION OF PROCEDURE: With the patient lying in bed in the lithotomy position under good general anesthesia, the perineum was prepped with Betadine solution and draped in the usual manner. A complete anorectal block was then performed with quarter percent Marcaine and one percent Xylocaine mixed in equal parts. There were 2 large groups of hemorrhoids at the 4 o'clock and 8 o'clock with prolapsing and they had mucosal changes secondary to the chronic exposure of the rectal mucosa. There were some minimal hemorrhoidal changes at the 12 o'clock position. Both the hemorrhoids at 4 and 8 o'clock had significant external components as well. Both hemorrhoids were done in similar fashion. The base of the hemorrhoid was then ligated with an 0 chromic suture. The external component was then sharply resected, and all of the prolapsing mucosa was similarly resected. Hemostasis was ascertained. The base of the hemorrhoid and the mucosa was then oversewn with the same 0 chromic suture, and perfect hemostasis was ascertained. The skin and mucosa were then reapproximated with interrupted sutures of 3-0 chromic. Both groups were done in similar fashion. A Gelfoam pack impregnated with Xylocaine was then placed. A dressing was applied. The sponge, lap and needle count was correct. The patient tolerated the procedure well and returned to the recovery room in stable condition. Job#: [id number]
[2018-02-21] MEDS: MORPHINE SULFATE 2 MG/ML SYR 1ML ONE ×6 (13:00→14:27)
[2018-02-21] MEDS ORDERED: HYDROMORPHONE 2MG/ML 2 MG/ML ML IV PRN (13:00)
--- OUTSIDE RECORDS SUMMARY | 2018-02-21 13:23 | XMS REPORT | Clinical Summary ---
Author Author [facility] Organization [facility] Address Unknown Phone Unavailable Care Team Providers Care Property Coordinator Name Role Phone Dinora Sales MD Unavailable [...] ESRD mouth daily. (end stage renal disease) ([facility]), Pre-transplant evaluation for chronic kidney disease 01/21/2018 Discontinued NIFEdipine (ADALAT CC) 60 Take 60 mg by 0 MG 24 hr mouth daily. tabletIndications: ESRD (end stage renal disease) ([facility]), Pre-transplant evaluation for chronic kidney disease 01/21/2018 Discontinued sevelamer (RENVELA) 800 Take 3,200 mg 0 mg tabletIndications: by mouth 2 ESRD (end stage renal (two) times disease) ([facility]) daily . 02/20/2018 baclofen (LIORESAL) 10 MG [...] knee; Right leg swelling; ESRD on dialysis ([facility]) 02/08/2018 Emergency Emergency Medicine 02/08/2018 Travel Walter Vazquez MD Rectal bleeding (Primary Dx); External hemorrhoid, bleeding; Bright red blood per rectum; ESRD (end stage renal disease) ([facility]); Anemia, unspecified type 02/04/2018 Emergency Emergency Medicine 02/03/2018 Travel Nikki Amaya MD R & L CATH (+/- SATS & CARDIAC OUTPUT) 01/16/2018 Surgery Jose Vega MD Giveon, Ron, MD Colitis (Primary Dx); ESRD on dialysis ([facility]); Generalized abdominal pain; ESRD on hemodialysis ([facility]) 01/14/2018 [facility] General Internal Medicine - Encounter 01/21/2018 Shante Foreman RN Waitlist Maintenance 01/14/2018 Telephone Transplant Carmen Gallagher MD ESRD (end stage renal disease) ([facility]) 01/10/2018 Hospital Radiology Encounter Carmen Gallagher MD ESRD (end stage renal disease) ([facility]) 01/10/2018 Hospital Cardiology Encounter Carmen Gallagher MD 01/10/2018 Outside Orders Shanell Calderon MD Finch, Jennifer L., MD ESRD (end stage renal disease) ([facility]) (Primary Dx) 01/08/2018 Evaluation Transplant Jv Patino Appointment 12/24/2017 Telephone Transplant Shante Foreman RN ESRD (end stage renal disease) ([facility]) (Primary Dx); Awaiting transplantation of kidney 12/22/2017 [...] Taken Vital Sign Reading 02/08/2018 2:40 PM PHOTO TECHNICIAN Blood Pressure 135/78 02/08/2018 2:40 PM PHOTO TECHNICIAN Pulse 82 02/08/2018 2:40 PM PHOTO TECHNICIAN Temperature 36.7 C (98.1 F) 02/08/2018 2:40 PM PHOTO TECHNICIAN Respiratory Rate 16 02/08/2018 1:47 PM PHOTO TECHNICIAN Oxygen Saturation 99% - Inhaled Oxygen - Concentration 02/08/2018 11:56 AM PHOTO TECHNICIAN Weight 77.6 kg (171 lb) 02/08/2018 11:56 AM PHOTO TECHNICIAN Height 167.6 cm (5' 6") 02/08/2018 11:56 AM PHOTO TECHNICIAN Body Mass Index 27.6 Plan of Treatment Health Maintenance Due Date Last Done Comments INFLUENZA VACCINE 12/23/2017 Procedures Comments Procedure Name Priority Date/Time Associated Diagnosis VENOUS DOPPLER LEG, RIGHT STAT 02/08/2018 1:38 PM PHOTO TECHNICIAN CBC W/PLT COUNT & AUTO STAT 02/03/2018 DIFFERENTIAL 11:21 PM PHOTO TECHNICIAN PT/APTT STAT 02/03/2018 11:21 PM PHOTO TECHNICIAN CBC W/PLT COUNT & AUTO STAT 02/03/2018 DIFFERENTIAL 11:21 PM PHOTO TECHNICIAN BASIC METABOLIC PANEL (7) STAT 02/03/2018 11:21 PM PHOTO TECHNICIAN CARDIAC CATH REPORT - 01/22/2018 SCAN 2:40 [...] awaiting renal REFLEX TO ANTIBODY 3:36 PM PHOTO TECHNICIAN transplant SPECIFICITY FLOW PRA CLASS I WITH Routine 04/04/2017 Patient awaiting renal REFLEX TO ANTIBODY 3:36 PM PHOTO TECHNICIAN transplant SPECIFICITY after 02/20/2017 Results * Venous doppler leg, right (02/08/2018 1:38 PM PHOTO TECHNICIAN) Ejection Fraction [facility] Impressions Performed At Right Impression [facility] 1. There is no deep venous obstruction in the common femoral, profunda [facility] femoral, femoral, popliteal, posterior tibial or peroneal [...] PV LAB - Lower Extremities DVT Study [facility] Demographics [facility] Patient NameJANINE WILLINGHAM Date of Study 02/08/2018 URIEL 42 Visit [id number] 1975 Referring GOPAL GOMEZ Room Number ED13 Physician Negative Developer Kevin ZaafrlPhysicijimbo Malik T Procedure Type of Study: Veins: Lower Extremities DVT Study, VENOUS DOPPLER LEG, RIGHT. Indications for Study:Knee pain and Leg pain . Patient Status:STAT. Study Location:Portable. Technical Quality:Adequate visualization. Risk Factors History of Disease + +----+--------+ !Diagnosis !Date!Comments! + +----+--------+ !History/Risk Factors: !!leg pain! + +----+--------+ Procedure Note Interface, External Ris In - 02/08/2018 5:23 PM PHOTO TECHNICIAN PV LAB - Lower Extremities DVT Study Demographics Patient Name JANINE WILLINGHAM Date of Study 02/08/2018 URIEL Age 42 Visit Number [id number] Gender Male Accession Number [id number] Date of 1975 Referring GOPAL GOMEZ Room Number ED13 Physician Negative Developer Asher Diaz Interpreting Maximino Bailey Physician MD [...] MKCKESSON CPACS * PT/aPTT (02/03/2018 11:21 PM PHOTO TECHNICIAN) Only the most recent of 2 results within the time period is included. Protime 16.2 (H) 11.7 - 14.7 seconds [facility] INR 1.3 <=5.9 [facility] PTT 30.5 22.5 - 36.0 seconds [facility] Specimen Blood - Arm, Left Narrative Performed At RECOMMENDED COUMADIN/WARFARIN INR THERAPY RANGES [facility] STANDARD DOSE: 2.0 - 3.0 Includes: PROPHYLAXIS for venous thrombosis, [facility] systemic embolization; TREATMENT for venous thrombosis and/or pulmonary embolus. HIGH RISK: Target INR is 2.5-3.5 for patients with mechanical heart valves. Performing Organization Address City/State/Zipcode Phone Number [facility] [address] [place] [address] [facility] * CBC with platelet count + automated diff (02/03/2018 11:21 PM PHOTO TECHNICIAN) Only the most recent of 9 results within the time period is included. WBC 6.5 3.5 - 10.5 K/L [facility] RBC 3.95 (L) 4.63 - 6.08 M/L [facility] Hemoglobin 10.6 (L) 13.7 - 17.5 GM/DL [facility] Hematocrit 33.8 (L) 40.1 - 51.0 % [facility] MCV 85.6 79.0 - 92.2 fL [facility] MCH 26.8 25.7 - 32.2 pg [facility] MCHC 31.4 (L) 32.3 - 36.5 GM/DL [facility] RDW 19.3 (H) 11.6 - 14.4 % [facility] Platelets 131 (L) 150 - 450 K/CU MM [facility] MPV 9.8 9.4 - 12.4 fL [facility] nRBC 0 0 - 0 /100 WBC [facility] % Neutros 58 % [facility] % Lymphs 21 % [facility] % Monos 8 % [facility] % Eos 11 % [facility] % Baso 1 % [facility] # Neutros 3.82 1.78 - 5.38 K/L [facility] # Lymphs 1.39 1.32 - 3.57 K/L [facility] # Monos 0.52 0.30 - 0.82 K/L [facility] # Eos 0.72 (H) 0.04 - 0.54 K/L [facility] # Baso 0.08 0.01 - 0.08 K/L [facility] Immature 0 0 - 1 % [facility] Granulocytes-Relative [facility] Specimen Blood - Arm, Left Performing Organization Address City/State/Zipcode Phone Number [facility] [address] [place] [address] [facility] * Basic Metabolic Panel (02/03/2018 11:21 PM PHOTO TECHNICIAN) Only the most recent of 9 results within the time period is included. Sodium 141 136 - 145 meq/L [facility] Potassium 4.8 3.5 - 5.1 meq/L [facility] Chloride 103 98 - 107 meq/L [facility] CO2 25 22 - 29 meq/L [facility] BUN 46 (H) 7 - 21 mg/dL [facility] Creatinine 8.75 (H) 0.57 - 1.25 mg/dL [facility] Glucose 103 70 - 105 mg/dL [facility] Calcium 9.1 8.4 - 10.2 mg/dL [facility] EGFR 7Comment: ESTIMATED GFR IS NOT mL/min/1.73 sq m [facility] ACCURATE CREATININE [facility] CLEARANCE IN PREDICTING GLOMERULAR FILTRATION RATE. ESTIMATED GFR IS NOT APPLICABLE FOR DIALYSIS PATIENTS. Specimen Blood - Arm, Left Performing Organization Address City/State/Zipcode Phone Number [facility] [address], [place] [address] MEDICAL CENTER * CARDIAC CATH REPORT - SCAN (01/22/2018 2:40 PM CDT) Narrative Performed At * VASCULAR DIAGRAM -SCAN (01/22/2018 2:40 PM CDT) Narrative Performed At * RHYTHM STRIP - SCAN (01/22/2018 2:40 PM CDT) Narrative Performed At * ECHOCARDIOGRAM REPORT - SCAN (01/21/2018 6:30 PM CDT) Narrative Performed At * Tissue Exam (01/21/2018 8:07 AM CDT) Case Report Surgical Pathology [facility] Report [facility] Case: [id number] Authorizing Provider:Abdullahi Amaya MD (Mark) Collected: 01/21/2018806 Ordering Location: [address] Received: 01/21/2018806 Service Pathologist: Amado Soliz MD Specimen:Abdomen, FAT PAD BX EVALUATION FOR AMYLOID DIAGNOSIS SOFT TISSUE, "FAT PAD", [facility] ULTRASOUND-GUIDED CORE NEEDLE [facility] BIOPSY: FIBROADIPOSE TISSUE WITHOUT SIGNIFICANT HISTOPATHOLOGIC ALTERATION. [place] SPECIAL STAIN IS NEGATIVE FOR AMYLOID. Signing Pathologist Direct Phone Line: [phone] CPT Code(s) 62428, 99532 [facility] CLINICAL HISTORY Evaluate for amyloid [facility] SPECIMEN SOURCE Right abdomen fat pad biopsy [facility] GROSS DESCRIPTION The specimen is received in a [facility] formalin-filled container and [facility] labeled with the patient's information and labeled "abdomen right fat pad biopsy" and consists of two yellow-white core biopsies both measuring 1.5 cm in length, submitted entirely A1. CG/pl MICROSCOPIC DESCRIPTION Performed. [facility] SPECIAL STUDIES The following special studies [facility] were performed on this case [facility] and the interpretation is incorporated in the diagnostic report above: BLOCK A1- [place]. Gross assessment was [facility] performed at [place] Pathology, [address] [place] [address], Technical component was [facility] performed at [place] Pathology, [address] [place] [address], Professional component [facility] was performed at [place], [facility] Pathology, [address] [place] [address], Specimen Tissue - Abdomen Performing Organization Address [facility] [place] [address] [phone] [place] [address] * Phosphorus (01/21/2018 4:53 AM CDT) Only the most recent of 7 results within the time period is included. Phosphorus 5.6 (H) 2.3 - 4.7 mg/dL [facility] Specimen Blood - Arm, Right Performing Organization Address [facility] [place] [address] [phone] * Magnesium (01/21/2018 4:53 AM CDT) Only the most recent of 7 results within the time period is included. Magnesium 2.3 1.6 - 2.6 mg/dL [facility] Specimen Blood - Arm, Right Performing Organization Address [facility] [place] [address] [phone] [place] [address] * US Core Biopsy (01/20/2018 4:50 PM CDT) Narrative Performed At FINAL REPORT [facility] Ultrasound guided subcutaneous fat pad biopsy dated 01/20/2018 Procedure: Subcutaneous fat pad biopsy Pre-procedure diagnosis: Suspicious for amyloidosis Post-procedure diagnosis: Suspicious for amyloidosis Radiologist: Carly Amaya MD Foundry Manager: None Sedation: None. Anesthesia: 1% Xylocaine local [...] MD Report Verified Date/Time:01/20/2018 17:14:49 Reading Location: [address] Ultrasound Reading Room Procedure Note Interface, External Ris In - 01/20/2018 5:17 PM CDT FINAL REPORT Ultrasound guided subcutaneous fat pad biopsy dated 01/20/2018 Procedure: Subcutaneous fat pad biopsy Pre-procedure diagnosis: Suspicious for amyloidosis Post-procedure diagnosis: Suspicious for amyloidosis Radiologist: Carly Amaya MD Foundry Manager: None Sedation: None. Anesthesia: 1% Xylocaine local [...] Report Verified Date/Time: 01/20/2018 17:14:49 Reading Location: [address] Ultrasound Reading Room Performing Organization Address [...] Ref Range: NonreactiveNonreactive To monitor pt. * [place] / lambda light chains, serum (01/18/2018 6:39 AM CDT) [place] Lt Chain,Free 205.1 (H) 3.3 - 19.4 mg/L [facility] Lambda Lt Chain,Free 176.0 (H) 5.7 - 26.3 mg/L [facility] [place]/Lambda,Free 1.17 0.26 - 1.65 [facility] Comment: [...] At Performing Lab [facility] [employer] [place] [address] [place] [address] Jericho Franco MD, PhD, EROS Performing Organization Address City/State/Zipcode Phone Number [facility], [address] [place], [place] [facility] [address] * Protein electrophoresis, serum (01/18/2018 6:39 AM CDT) Only the most recent of 2 results within the time period is included. Albumin Fraction 3.7 3.5 - 5.5 g/dL [facility] Alpha 1 Fraction 0.4 0.2 - 0.4 g/dL [facility] Alpha 2 Fraction 0.6 0.5 - 0.9 g/dL [facility] Beta Fraction 0.9 0.6 - 1.1 g/dL [facility] Gamma Globulin Fraction 1.8 (H) 0.7 - 1.7 g/dL [facility] Interpretation Slight polyclonal elevation of [facility] gamma fraction, suggesting [facility] mild chronic inflammatory response. No monoclonal bands detected. No significant change from previous study performed 01-16-18. Pathologist: Rebekah Martinez MD [facility] (electronic signature) [facility] Protein, Total 7.4 6.0 - 8.3 gm/dL [facility] Specimen Blood - Arm, Right Performing Organization Address City/State/Zipcode Phone Number [facility] [address] [place] [address] [facility] * TRANSFUSION SERVICE REPORT - [...] AM CDT) ABO/RH AUTOMATED (BE[place]ER) O POSITIVE [facility] Ab Scrn NEGATIVE [facility] Specimen Blood Performing Organization Address [facility] Phone Number [address] * Reticulocyte count (01/16/2018 6:29 AM CDT) % Retic 1.5 0.5 - 1.8 % [facility] Specimen Blood Performing Organization Address [facility] Phone Number [address] * Folate, RBC (01/16/2018 6:29 AM CDT) Folate, Rbc 753 >280 ng/mL RBC [facility] Specimen Blood Narrative Performed At Performing Lab [facility] [employer] [address] [address] Jericho Franco MD, PhD, EROS Performing Organization Address City/[facility] Phone Number [facility] [employer] [place], [address] [place], [place] [address] [address] * Peripheral Blood Smear - Hold only (01/16/2018 6:25 AM CDT) Peripheral Smear Save saved [facility] Specimen Blood Performing Organization Address City/[facility]/Zipcode Phone Number [address] [address] [phone] [place] [address] * Fibrinogen (01/16/2018 6:25 AM CDT) Fibrinogen 318 225 - 434 mg/dl [facility] Specimen Blood Performing Organization Address [facility] [place] [address] [phone] * D-dimer (01/16/2018 6:25 AM CDT) D-Dimer, Quant 1.31 (H) <0.50 MG/L FEU [facility] Specimen Blood Narrative Performed At Intended Use: The D-Dimer Assay can be used to aid in the diagnosis of Deep Vein [facility] Thrombosis (DVT) and Pulmonary Embolism Disease (PED). [facility] In patients with low pre-test probability, various studies concerning STA Liatest D-dimer test have reported that with a cutoff value of 0.50 MG/L FEU, the Negative Predictive Value (NPV) regarding the exclusion of thrombosis is within 95-100% range. Performing Organization Address [facility] [place] [address] [phone] * HIV-1 Antigen with HIV-1/2 Antibody (01/16/2018 6:24 AM CDT) HIV-1 Antigen with HIV NON-REACTIVE Nonreactive [facility] 1&2 Antibody [facility] Specimen Blood Performing Organization Address [facility] Phone Number [address] [address] [phone] [place] [address] * Rheumatoid factor Ab, reflex to titer (01/16/2018 6:24 AM CDT) Rheumatoid Factor Positive [facility] Specimen Blood Performing Organization Address [facility]/Zipcode Phone Number [address] [address] [facility] * Rheumatoid factor titer (01/16/2018 6:24 AM CDT) Rheumatoid Factor TTR 1:2 [facility] Specimen Blood Performing Organization Address City/[facility] Phone Number [address] [address] [facility] * Anti-Nuclear Antibody (JESSIE) (01/16/2018 6:24 AM CDT) JESSIE Negative Negative [facility] Specimen Blood Narrative Performed At Test performed by IFA method. [facility] Test performed by IFA method. [facility] Performing Organization Address City/[facility] Phone Number [address] [address] [phone] [address] * Vitamin B12 (01/16/2018 6:24 AM CDT) Vitamin B12 617 213 - 816 pg/mL [facility] Specimen Blood Performing Organization Address City/[facility] Phone Number [address] [address] [phone] [place] [address] * EBV Viral Load (01/16/2018 6:23 AM CDT) EBV Viral Load Negative or below the linear [facility] range of the assay (<500 [facility] copies/mL) Specimen Blood Narrative Performed At This assay was performed by real-time PCR for the detection of the Oralia-Day [facility] virus (EBV) gene EBNA-1.The test is composed of (1) DNA extraction from [facility] patient specimen, and (2) real-time PCR amplification and detection with [id number] primers and probes. A well-conserved region of the EBNA-1 gene is targeted, along with an internal control sequence used to confirm PCR amplification. Asymptomatic carriers and viral genetic variation, among other factors, can affect the accuracy of nucleic acid testing; therefore, results should be interpreted in light of clinical data. This test was developed and its performance characteristics determined by the [facility] Pathology Department, Section of Molecular Pathology. It has not been cleared or approved by the U.S. Food and Drug Administration (FDA), since FDA approval is not required for clinical use of the test. Validation was done as required by The Clinical Laboratory Improvement Amendments of 1988. Performing Organization Address [facility]/Zipcode Phone Number [facility] [address] [place] [address] [facility] * CMV PCR, quantitative (01/16/2018 6:23 AM CDT) CMV DNA Viral Load Negative or below the linear [facility] range of the assay (<375 [facility] copies/mL) Specimen Blood Narrative Performed At Cytomegalovirus (CMV) infection can cause significant disease in [facility] immunosuppressed patients. However, it is common for CMV to manifest as a [facility] limited infection which is of no [...] and its performance characteristics determined by the [facility] Pathology Department, Section of Molecular Pathology. It has not been cleared or approved by the U.S. Food and Drug Administration (FDA), since FDA approval is not required for clinical use of the test. Validation was done as required by The Clinical Laboratory Improvement Amendments of 1988. Performing Organization Address [facility] Phone Number [place] [phone] [place] [address] [facility] * Hepatitis B surface antigen (01/16/2018 6:23 AM CDT) hepatitis B Surface Ag NON-REACTIVE Nonreactive [facility] Specimen Blood Performing Organization Address City/State/Zipcode Phone Number [facility] [address] [place] [address] MED[facility]ENTER * Transesophageal echo (01/16/2018 12:00 AM CDT) Ejection Fraction [facility] MKCKESSON CPA Narrative Performed At Transesophageal Echocardiography Report (RUTHANN) [facility]ographics [facility] Patient Name JANINE WILLINGHAM Date of Study 01/16/2018 URIEL [id number] Male Visit Number [id number] Room Number 747 Number Date of Birth1975Referring Physician Monique Escudero Age42 year(s)Negative Developer Aidan Haynes Interpreting Gopal Davila Physician MD [...] Study 01/16/2018 URIEL Gender Male Visit Number [id number] Race Unknown Room Number 747 Number Date of 1975 Referring Physician Monique Escudero Age 42 year(s) Negative Developer Aidan Haynes Interpreting Gopal Davila, Physician Fellow June PIECRE Procedure Type of Study RUTHANN procedure:TRANSESOPHAGEAL ECHO [...] AM CDT) Narrative Performed At FINAL REPORT [facility] CLINICAL INDICATION: Dyspnea, lung nodules in the [...] MD Report Verified Date/Time:01/15/2018 03:35:26 Reading Location: [address] Reading Room Procedure Note Interface, External [...] Report Verified Date/Time: 01/15/2018 03:35:26 Reading Location: [address] Reading Room Performing Organization Address City/State/Zipcode Phone Number [facility] * CT abdomen/pelvis with IV contrast (01/14/2018 5:50 PM CDT) Narrative Performed At FINAL REPORT [facility] HISTORY : Abdominal pain, unspecified NAUSEA EMESIS [...] MD Report Verified Date/Time:01/14/2018 18:09:26 Reading Location: [facility] C013Y CT Body Reading Room Procedure [...] Report Verified Date/Time: 01/14/2018 18:09:26 Reading Location: [facility] C013Y CT Body Reading Room Performing Organization Address City/State/Zipcode Phone Number [facility] * Lipase (01/14/2018 1:52 PM CDT) Lipase 10 8 - 78 U/L [facility] Specimen Blood - Arm, Left Performing Organization Address [facility] Phone Number [address] [phone] [address] * Amylase (01/14/2018 1:52 PM CDT) Amylase 77 25 - 125 U/L [facility] Specimen Blood - Arm, Left Performing Organization Address [facility] Phone Number [address] [address] [phone] [address] * Hepatic function panel (01/14/2018 1:52 PM CDT) Protein, Total 8.6 (H) 6.0 - 8.3 gm/dL [facility] Albumin 4.4 3.5 - 5.0 g/dL [facility] Total Bilirubin 1.2 0.2 - 1.2 mg/dL [facility] Bilirubin, Direct 0.8 (H) 0.1 - 0.5 mg/dL [facility] Alkaline Phosphatase 167 (H) 40 - 150 U/L [facility] AST 20 5 - 34 U/L [facility] ALT 11 6 - 55 U/L [facility] Specimen Blood - Arm, Left Performing Organization Address [facility] [place] [address] [phone] * ECHOCARDIOGRAM REPORT - SCAN (01/10/2018 3:23 PM CDT) Narrative Performed At * US abdomen complete (01/10/2018 3:08 PM CDT) Narrative Performed At FINAL REPORT [facility] Ultrasound of the Abdomen, 01/10/2018. Clinical History:Abdominal [...] MD Report Verified Date/Time:01/10/2018 17:09:45 Reading Location: [address] Radiology Reading Room Procedure Note Interface, [...] Report Verified Date/Time: 01/10/2018 17:09:45 Reading Location: [address] Radiology Reading Room Performing Organization Address City/State/Zipcode Phone Number GE RIS * 2D Echo W/Doppler(CW/PW/Color) (01/10/2018 1:38 PM CDT) Ejection Fraction [facility] Narrative Performed At Transthoracic Echocardiography Report (TTE) [facility] Demographics [facility] Patient Name JANINE WILLINGHAM Date of Study 01/10/2018 URIEL [id number] Male Visit Number [id number] Room Number OP Number Date of Birth1975Referring Physician Aileen Machuca Age42 year(s)Negative Developer Kourtney Smalls, CS Interpreting [facility] Gastelum Physician [...] Study 01/10/2018 URIEL Gender Male Visit Number [id number] Race Unknown Room Number OP Number Date of 1975 Referring Physician Aileen Machuca Age 42 year(s) Negative Developer Kourtney Smalls, BEN[place]AM[place] Interpreting Vargas Gastelum Physician [...] LVOT CI: 2.75 l/min/m^2 Performing Organization Address City/[facility] Phone Number [facility] * FLOW PRA CLASS II WITH REFLEX TO ANTIBODY SPECIFICITY (11/18/2017 10:34 AM CDT) Only the most recent of 3 results within the time period is included. Flow Class II Percent 0 [facility] Positive Flow Class Report [facility] Comments Specimen Blood Narrative Performed At Disclaimer: [facility] This test was developed and its performance characteristics determined by the [facility]. It has not been cleared or [...] complexity clinical laboratory testing. Performing Organization Address City/State/[facility] Phone Number [facility] ONE Jhony Vega, MS: [id number], [place] [address] CLIA#[id number] CAP#[id number] UNOS#[id number] * FLOW PRA CLASS I WITH REFLEX TO ANTIBODY SPECIFICITY (11/18/2017 10:34 AM CDT) Only the most recent of 3 results within the time period is included. Flow Class I Percent 0 [facility] Positive Flow Class Report [facility] Comments Specimen Blood Narrative Performed At Disclaimer: [facility] This test was developed and its performance characteristics determined by the [facility]. It has not been cleared or [...] testing. Performing Organization Address City/State/Zipcode Phone Number [facility] ONE Jhony Vega, MS: [id number], [place] [address] CLIA#[id number] CAP#[id number] UNOS#[id number] after 02/20/2017 Insurance Payer Benefit Subscriber ID Type Phone Address Plan / Group BLUE CROSS/BLUE SHIELD BCBS OS xxxxxxxxxxxxxxx PPO [phone] [address] POS/PP[place] [address] O [employer] - MGD CARE [employer] HMO xxxxxxxxx HMO/POS POS [place] ([place]) [place] [address] Advance Directives For more information, please contact: [facility] [address] [place], [place] [phone] Date Inactivated Comments Code Status Date Activated 02/03/2018 10:46 PM Full Code 01/17/2018 3:07 AM This code status was determined by: Patient 01/16/2018 3:20 PM Full Code 01/16/2018 1:56 PM This code status was determined by: Patient 01/16/2018 1:56 PM Full Code 01/16/2018 6:25 AM This code status was determined by: Patient
[2018-02-21] MEDS: HYDROMORPHONE 2MG/ML 2 MG/ML ML ONE ×2 (13:24→14:28)
[2018-02-21 14:27] VITALS: BP 139/78
[2018-02-21] MEDS: SODIUM CHLORIDE 0.9% 500ML 500 ML ONE ×2 (14:27→15:17)
[2018-02-21 14:44] VITALS: BP 139/78
[2018-02-21 14:49] VITALS: BP 139/78
[2018-02-21] MEDS ORDERED: SEVOFLURANE INHAL SOLN 250 ML PEN BTL ONE (15:25)
[2018-02-21] MEDS ORDERED: DEXAMETHASONE SOD PHOS INJ 4 MG/ML VIAL ONE (15:25)
[2018-02-21] MEDS ORDERED: PROPOFOL IV EMULSION 10 MG/ML 20 ML VIAL ONE (15:25)
[2018-02-21] MEDS ORDERED: ONDANSETRON HCL INJ 2MG/ML 2ML 2 MG/ML VIAL ONE (15:25)
[2018-02-21] MEDS ORDERED: LIDOCAINE HCL 2% LOCAL INJ 5 ML SDV VIAL INJ ONE (15:25)
[2018-02-21 16:30] VITALS: BP 146/87
[2018-02-21] MEDS ORDERED: MIDAZOLAM HCL 2 MG/2 ML VIAL ONE (16:32)
[2018-02-21] MEDS ORDERED: FENTANYL CITRATE/PF 100MCG/2 ML INJ ONE (16:32)
[2018-02-21] MEDS: HYDROMORPHONE 2MG/ML 2 MG/ML ML IV PRN ×2 (16:50→20:15)
[2018-02-21] MEDS: HYDROCODONE/APAP 7.5MG-325MG 1 EA TAB PO PRN (16:50)
--- NOTE | 2018-02-21 18:59 | NUR ---
patient recieved awake, alert, lying quietly in bed. vss. no c/o pain noted. pm assessment complete. no signs of bleeding noted to surgical site. patient instructed to call for assistance when needed.
[2018-02-21 20:00] VITALS: BP 135/83
[2018-02-21] MEDS: ONDANSETRON HCL INJ 2MG/ML 2ML 2 MG/ML VIAL IV PRN (20:15)
--- NOTE | 2018-02-21 20:15 | NUR ---
patient medicated with dilaudid 1mg and zofran 4mg ivp for c/o pain at this time. will continue to monitor.
[2018-02-21] MEDS: NIFEDIPINE CR 30 MG TAB PO SCH (20:18)
[2018-02-21] MEDS: LABETALOL HCL 200 MG TAB PO SCH (20:18)
[2018-02-21] MEDS ORDERED: NIFEDIPINE PO SCH (21:00)
[2018-02-22] VITALS: BP 133/81
--- NOTE | 2018-02-22 | NUR ---
patient appears to be resting quietly. no c/o pain noted at this time. family remains at the bedside.
[2018-02-22] MEDS: HYDROMORPHONE 2MG/ML 2 MG/ML ML IV PRN (03:10)
[2018-02-22] MEDS: ONDANSETRON HCL INJ 2MG/ML 2ML 2 MG/ML VIAL IV PRN (03:10)
--- NOTE | 2018-02-22 03:10 | NUR ---
patient medicated with dilaudid 1mg and zofran 4mg ivp for c/o rectal pain 11/01. will continue to monitor.
[2018-02-22 04:00] VITALS: BP 126/74
[2018-02-22 08:30] VITALS: BP 114/74
[2018-02-22] MEDS: SEVELAMER CARBONATE 800 MG TAB PO SCH (08:48)
[2018-02-22] MEDS: NIFEDIPINE CR 30 MG TAB PO SCH (08:52)
[2018-02-22] MEDS: LABETALOL HCL 200 MG TAB PO SCH (08:52)
[2018-02-22] MEDS: HYDROCODONE/APAP 7.5MG-325MG 1 EA TAB PO PRN (08:53)
[2018-02-22] MEDS ORDERED: SURFAK240 MG PO (11:19)
[2018-02-22] MEDS ORDERED: NORCO 7.5-3251 EACH PO (11:19)
[2018-02-22] MEDS ORDERED: KEFLEX500 MG PO (11:21)
[2018-02-22] MEDS ORDERED: KENALOG (11:21)
== END 2018-02-22 11:39 | disposition home or self-care (01) ==
LOC: OR 05:42 → PACU V 12:01 → IMCU 14:27
PROVIDERS: ADMIT Surgery; ATTEND Surgery
DX: K64.5 Perianal venous thrombosis (principal); I12.9 Hypertensive chronic kidney disease with stage 1 through stage 4 chronic kidney disease, or unspecified chronic kidney disease; N18.3 Chronic kidney disease, stage 3 (moderate)
CPT/HCPCS: 36415 ×2; 46260; 80048; 84132; 85025; 85610; 85730; 88304; 93005; G0378 ×2; J1100; J1170 ×2; J2001 ×2; J2250; J2270; J2405 ×2; J2704; J7040